=== PATIENT | female | born 1980 | race Two or more races ===

== ENCOUNTER 2024-10-08 22:29 | Inpatient (IN) | payer MEDICAID, SELFPAY ==
[2024-10-08 22:29] VITALS: BMI 28.0
--- NOTE | 2024-10-08 23:29 | EKG_ITS ---
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
[2024-10-08 23:31] VITALS: BP 84/54; PULSE 98; RESP 16; TEMP 36.7; O2SAT 98
[2024-10-09] VITALS (13 sets, daily range): BP systolic 81–126; BP diastolic 52–72; PULSE 74–95; RESP 14–18; TEMP 36.2–37.1; O2SAT 93–100; BMI 29.3
[2024-10-09 00:09] LABS: Basophils # (Auto) 0.1 Thou/mm3 (0.0-0.2); Basophils % (Auto) 0 % (0-2.5); Eosinophils % (Auto) 0 % (0-10); Hematocrit 34.1 % (36.0-46.0); Hemoglobin 10.1 g/dL (12.0-16.0); Immature Granulocytes % (Auto) 1 % (0-0); Immature Granulocytes Auto 0.22 Thou/mm3 (0.00-0.00); Lymphocytes # (Auto) 1.7 Thou/mm3 (1.0-4.8); Lymphocytes % (Auto) 6 % (10-50); Mean Corpuscular HGB Conc 29.6 g/dl (31.0-37.0); Mean Corpuscular Volume 74 fL (80-100); Monocytes # (Auto) 2.2 Thou/mm3 (0.0-0.8); Monocytes % (Auto) 9 % (0-12); Neutrophils # (Auto) 21.7 Thou/mm3 (1.8-7.7); Neutrophils % (Auto) 84 % (37-80); Nucleated Red Blood Cell % 0 /100 WBC (0); Platelet Count 377 Thou/mm3 (140-440); RDW Standard Deviation 49.2 fL (36.4-46.3); White Blood Count 25.8 Thou/mm3 (3.6-11.0)
[2024-10-09 00:43] LABS: Alanine Aminotransferase 17 U/L (10-49); Albumin, Serum 4.3 gm/dL (3.5-5.0); Albumin/Globulin Ratio 1.4 (1.2-2.2); Alkaline Phosphatase 154 U/L (46-116); Anion Gap 13 (7-16); Aspartate Amino Transferase 26 U/L (0-34); BUN/Creatinine Ratio 15 Ratio (12-20); Bilirubin,Total < 0.2 mg/dL (0.3-1.2); Blood Urea Nitrogen 40 mg/dL (9-23); Calcium 9.3 mg/dL (8.3-10.6); Calcium (Corrected) 9.3 mg/dL (8.5-10.1); Carbon Dioxide 18.6 mMol/L (20.0-31.0); Chloride 104 mMol/L (98-107); Creatinine (Component) 2.6 mg/dL (0.6-1.3); Estimated Creatinine Clearance 19.8 mL/min (>60); Glucose 112 mg/dL (74-106); Osmolality,Calculated 282 (275-295); Potassium 4.2 mMol/L (3.4-5.1); Sodium 136 mMol/L (136-145); Total Protein 7.3 gm/dL (5.7-8.2); Troponin I < 0.020 ng/mL (0.0-0.045); eGFR 22 See Note
[2024-10-09 00:53] LABS: Collection Type, Urine Clean Catch
--- NOTE | 2024-10-09 01:07 | PD.EDCHEST ---
ED Chest Pain RME/HPI General Chief Complaint: Chest Pain Stated Complaint: WEAK, CP HX ANEMIA Time Seen by Provider: 10/08/24 22:34 Arrival date/time: 10/08/24 22:29 RME / HPI RME / HPI narrative: DR. PELAYO MAIN ED EVALUATION: 43-year-old female presents with multiple complaints. Primarily the patient is complaining of chest pain, abdominal pain, generalized weakness and syncopal episode. Patient has a history of hypertension and takes multiple medications for that. Patient has a history of a bleeding peptic ulcer and was hospitalized and required transfusion a little over a year ago. 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 She states that she has been feeling progressively worsening generalized weakness over the past 2 weeks. Today while refereeing, she developed lightheadedness and and lost consciousness. Apparently she fell and did not injure herself at all in the fall. She then developed the chest pain and the generalized abdominal pain, more generalized weakness and profuse nonbloody, nonbilious diarrhea today. Patient denies recent cough, dysuria, urinary frequency, skin infections. No fevers, shakes, chills, sweats. Patient arrived hypotensive at 84/54. She denies diaphoresis, nausea, vomiting or dyspnea. Patient denies recent bloody emesis or bowel movements, and no black or red stools. Related Data Home Medications ?Medication ?Instructions ?Recorded ?Confirmed amlodipine 5 mg tablet 10 mg PO QPM 01/08/22 10/09/24 gabapentin 100 mg capsule 200 mg PO HS 01/08/22 10/09/24 hydrocodone 10 mg-acetaminophen 1 - 2 tab PO Q4H PRN Pain 01/08/22 10/09/24 325 mg tablet lisinopril 20 mg tablet 20 mg PO QDAY 01/08/22 10/09/24 ferrous sulfate 325 mg (65 mg 325 mg PO BID 02/11/23 10/09/24 iron) tablet (FeroSul) losartan 100 mg tablet (Cozaar) 100 mg PO .COMPLEX 10/09/24 10/09/24 Previous Rx's ?Medication ?Instructions ?Recorded pantoprazole 40 mg tablet,delayed 40 mg PO BID 3 months #180 tabs 07/06/23 release sucralfate 1 gram tablet 1 g PO BID 3 months #180 tabs 02/12/23 Allergies Allergy/AdvReac Type Severity Reaction Status Date / Time tramadol AdvReac Severe anxiety Verified 05/25/24 09:30 Review of Systems Review of Systems Systems Reviewed: All systems reviewed, normal except as documented Narrative Review of Systems: GEN: No fever, no chills, no weight loss EYES: No discharge, no visual changes, no pain HEENT: No ear pain, no congestion, no sore throat PULM: No shortness of breath, no cough, no congestion CV: + chest pain, no dyspnea on exertion, no palpitations GI: No nausea, no vomiting, + diarrhea, + abdominal pain, no constipation : No frequency, no urgency and no dysuria MUSC/SKEL: No joint pain, no back pain SKIN: No rash PSYCH: No hallucinations, no depression HEME/LYMPH: No easy bleeding or bruising tendencies NEURO: + generalized weakness, no headache, + syncopal episode (see HPI) Past Medical History Past Medical History NEUROLOGIC: Negative Neurological Disorders or Seizures CARDIAC: Positive Cardiac Disorders and Hypertension; Negative Congestive Heart Failure RESPIRATORY: Negative Respiratory Disorders, Chronic Obstructive Pulmonary Disease (COPD) or Asthma GASTROINTESTINAL: Negative Gastrointestinal Disorders GENITOURINARY: Negative Genitourinary Disorders or Renal Disease REPRODUCTIVE: Negative Pelvic Inflammatory Disease MUSCULOSKELETAL: Positive Musculoskeletal Disorders ENT: Negative History of ENT Problems ENDOCRINE: Negative Endocrine Disorders, Diabetes Mellitus Type 1 or Diabetes Mellitus Type 2 HEMATOLOGIC: Positive Blood Disorders and Anemia; Negative Sickle Cell Disease OTHER HISTORY: Positive Blood Transfusions; Negative Autoimmune Disease, Blood Transfusion Reaction, Anesthesia Reactions, Organ Transplant, Chemotherapy, Radiation Therapy, Hyperbaric Therapy, MRSA, VRSA or Vancomycin-Resistant Enterococci Family History FAMILY HISTORY: Negative Family Psychiatric Problems, Family Respiratory Disorders, Family Cardiac Disorders, Family Gastrointestinal Problems, Family Cancer, Family Surgery or Family Anesthesia Reaction Surgical History SURGICAL: Positive Abdominal Surgery and Section (x5); Negative Organ Transplant OTHER SURGICAL HX: Essential hypertension Chronic pain syndrome Social History SMOKING STATUS: Never smoker SECOND HAND EXPOSURE: No SUBSTANCE USE: does not use ALCOHOL: Never ED Exam Narrative Physical exam: GENERAL APPEARANCE:? alert and oriented x 4, well-developed, well-nourished, no acute distress. Pale. HEENT: Normocephalic, atraumatic; pupils equal, round, reactive to light; EOMI; mucous membranes pink, moist; oropharynx clear; Pale conjunctiva. NECK: Supple LUNGS: CTABL; no wheezes, no rales, no rhonchi HEART: Regular rate, regular rhythm; normal S1, S2; no murmurs ABDOMEN: non distended; normal BS;? soft, no tenderness, no guarding, no rebound; no masses, no organomegaly, no hernia?? BACK:? no CVA tenderness EXTREMITIES:? atraumatic; no edema NEUROLOGIC: awake; alert and oriented x4; cranial nerves II-XII grossly intact; no focal sensory or motor deficits PSYCHIATRIC:? appropriate mood and affect SKIN: warm, dry, normal color; no rashes Course Quality Measures none Orders Category Date Time Status Bedside COVID-19 Antigen Test NOW Care 10/09/24 05:36 Completed Bedside Influenza A&B Antigen Test NOW Care 10/09/24 05:[address] Screening NOW Care 10/09/24 01:29 Completed Irrigation Service Technician Q4H START 00 Care 10/09/24 01:03 Active Continuous Pulse Oximetry STAT Care 10/09/24 01:03 Completed EKG (ED ONLY) *Do not use* NOW Care 10/08/24 23:29 Completed In and Out Catheter X1PRN Care 10/09/24 01:03 Completed Insert IV NOW Care 10/09/24 01:03 Completed NPO STAT Care 10/09/24 01:03 Completed Orthostatic Vitals NOW Care 10/09/24 01:06 Completed Strict Intake and Output Routine Care 10/09/24 01:[address] abdomen pelvis wo con Stat Exams 10/09/24 03:15 Completed EKG (ED Only) Stat Exams 10/08/24 23:29 Draft XR chest 1V portable Stat Exams 10/09/24 01:06 Completed B-Type Natriuretic Peptide Stat Lab 10/09/24 01:20 Completed Blood Culture (Lab) Stat Lab 10/09/24 01:20 Results CBC Stat Lab 10/08/24 23:59 Completed CMP [Comprehensive Metabolic Panel] Stat Lab 10/08/24 23:59 Completed Clostridium Difficile PCR Stat Lab 10/09/24 02:01 Completed Free T4 (Free Thyroxine) Stat Lab 10/09/24 01:20 Completed HCG Qualitative,Urine Stat Lab 10/09/24 00:42 Completed LDH (Lactate Dehydrogenase) Stat Lab 10/09/24 01:20 Completed Lactate (Lactic Acid) Stat Lab 10/09/24 01:20 Completed Lipase Stat Lab 10/09/24 01:20 Completed Magnesium Stat Lab 10/09/24 01:20 Completed PT [Prothrombin Time with INR] Stat Lab 10/08/24 23:59 Completed PTT [Partial Thromboplastin Time] Stat Lab 10/08/24 23:59 Completed Path Review Blood Smear Stat Lab 10/08/24 23:59 Completed Phosphorous Stat Lab 10/09/24 01:20 Completed Procalcitonin Stat Lab 10/09/24 01:20 Completed Stool Culture Stat Lab 10/09/24 02:01 Received Stool for WBCs Stat Lab 10/09/24 02:01 Completed TSH [Thyroid Stimulating Hormone] Stat Lab 10/09/24 01:20 Completed Troponin I Stat Lab 10/08/24 23:59 Completed Type and Screen Stat Lab 10/08/24 23:59 Completed Urinalysis Stat Lab 10/09/24 00:47 Completed Urine Culture Stat Lab 10/09/24 00:42 Received HYDROmorphone INJ [Dilaudid Inj] Med 10/09/24 03:30 Discontinued 0.5 mg IVP PRN PRN Ondansetron Inj [Zofran Inj] Med 10/09/24 03:16 Discontinued 4 mg IV X1 ONE Piper/Tazo Inj [Zosyn Inj] 4.5 gm Med 10/09/24 05:39 Discontinued Sodium Chloride 0.9% (Pop) [NS 0.9% mini bag] 100 ml IV X1 Sodium Chloride 0.9% 1000 ml [Ns] 1,000 ml Med 10/09/24 01:05 Discontinued IV 999 mls/hr Sodium Chloride 0.9% 1000 ml [Ns] 1,000 ml Med 10/09/24 01:05 Discontinued IV 999 mls/hr cefTRIAXone [Rocephin] 1,000 mg Med 10/09/24 01:05 Discontinued SODIUM CHLORIDE 0.9% (Popper) [Ns 0.9% (P)] 50 ml IV X1 Vital Signs Vital signs: Vital Signs Temperature 98.1 F 10/08/24 23:31 Pulse Rate 98 10/08/24 23:31 Respiratory Rate 16 10/08/24 23:31 Blood Pressure 84/54 L 10/08/24 23:31 Pulse Oximetry (%) 98 10/08/24 23:31 Oxygen Delivery Method Room Air 10/08/24 23:31 Chest Pain MDM Narrative MDM Narrative:: I have ordered a cardiac and a sepsis workup. I have ordered greater than 30 cc/KG fluid bolus, Rocephin, orthostatics and the remainder of the workup. Patient data External records reviewed:: [facility] previous records (Reviewed last ED visit dated 05/25/24 discharged with the following: Chronic anemia) Clinical information provided by:: patient Social determinants that could affect healthcare access:: none Patient has the following chronic illnesses:: Hypertension and takes multiple medications for that. Patient has a history of a bleeding peptic ulcer and was hospitalized and required transfusion a little over a year ago. How is presenting disease/condition affected by chronic disease/condition?: exacerbated by Evaluation data The following diagnostics were reviewed and interpreted by me:: lab results, radiology exam(s) and EKG tracing(s) (EKG 23:35 normal sinus rhythm at 95. Normal axis no ectopy. No signs of acute ischemia.) Lab and/or radiology exams considered but not ordered:: none Interpretation Summary: 02:21 my read for the chest x-ray: Normal bony anatomy, sharp costophrenic angles, normal diaphragmatic edge, normal cardiac silhouette. No parenchymal infiltrates. No pneumothorax RADIOLOGY Procedure(s): XR chest 1V portable Accession Number(s): [id number] cc: Alicia Tena (ARIACHL); Frankie Darling MD; Ken Pelayo MD~ Examination: AP chest single view Technique one AP portable supine chest single view Exam date and time: October 09, 2024 at 0131 hrs. Comparison 04/27/2020 Indications: Sepsis today. Findings: Normal heart size. Lungs are clear. The osseous structures are intact Impression: No active disease Dictated By: Frankie Darling MD Procedure(s): CT abdomen pelvis wo [facility] Accession Number(s): [id number] cc: Darinel CAROLINA),Alicia SMITH; Frankie Darling MD; Ken Pelayo MD~ Examination: CT abdomen and pelvis without contrast. Coronal 3-D reconstructions. Sagittal 2-D reconstructions. Date and time of exam:October 10, 2024 0423 hrs. Indications: Generalized abdominal pain and acute renal failure anemia chest pain weakness abdominal pain today CTDI: vol (mGy): 6.96 DLP: (mGycm): 358 Technique: Axial images of the abdomen have been obtained, 3 mm slice thickness Intravenous contrast material has not been administered. Low dose protocols were performed. One or more of the following dose reduction techniques were used; automated exposure control, adjustment of the mA and/or KV according to patient size, use of iterative reconstruction technique. Findings: No focal liver or splenic lesions Absent gallbladder No pancreatic or adrenal mass 2 mm nonobstructing right renal calculus Colon is fluid filled with wall thickening Absent appendix Urinary bladder intact Incompletely healed fractures left superior inferior rami No free air Impression: 2 mm nonobstructing right renal calculus Diffuse nonspecific colitis pattern Dictated By: Frankie Darling MD Medications / Prescriptions Medications or Prescriptions considered but not ordered:: none Medication administrations:: Medication Administration History Acetaminophen (Acetaminophen 325 Mg Tablet) 650 mg PO Q6H PRN PRN Reason: Fever >100 or pain 1-5 Stop: 11/08/24 06:26 Hydrocodone Bitart/Acetaminophen (Hydrocodone/Apap 5/325 Tablet) 1 tab PO Q4HR PRN PRN Reason: Pain Scale 6-10 (Moderate Stop: 10/14/24 06:26 Last Admin: 10/10/24 21:58 Dose: 1 tab Documented By: Admin: 10/10/24 17:50 Dose: 1 tab Documented By: Admin: 10/10/24 11:47 Dose: 1 tab Documented By: CLIFF Hydromorphone HCl (Hydromorphone Inj 2 Mg/Ml Vial) 0.5 mg IVP Q4HR PRN PRN Reason: BREAKTHROUGH PAIN Stop: 10/15/24 08:29 Last Admin: 10/10/24 19:50 Dose: 0.5 mg Documented By: Admin: 10/10/24 14:05 Dose: 0.5 mg Documented By: CLIFF(2) Admin: 10/10/24 09:16 Dose: 0.5 mg Documented By: CLIFF Metronidazole (Flagyl 500 Mg Iv) 500 mg in 100 mls @ 200 mls/hr IV Q8HR FAHAD Stop: 10/16/24 08:59 Last Admin: 10/10/24 21:59 Dose: 200 mls/hr Documented By: Infusion: 10/10/24 14:36 Dose: Infused Documented By: Admin: 10/10/24 14:06 Dose: 200 mls/hr Documented By: CLIFF(2) Infusion: 10/10/24 05:30 Dose: Infused Documented By: CLIFF(2) Admin: 10/10/24 05:00 Dose: 200 mls/hr Documented By: Infusion: 10/09/24 21:57 Dose: Infused Documented By: Admin: 10/09/24 21:27 Dose: 200 mls/hr Documented By: Infusion: 10/09/24 15:30 Dose: Infused Documented By: Admin: 10/09/24 15:00 Dose: 200 mls/hr Documented By: Infusion: 10/09/24 10:15 Dose: Infused Documented By: Admin: 10/09/24 09:45 Dose: 200 mls/hr Documented By: GEOVANNI Ciprofloxacin/Dextrose (Cipro Ivpb) 400 mg in 200 mls @ 200 mls/hr IV Q12HR FAHAD Stop: 10/16/24 08:59 Last Admin: 10/10/24 20:18 Dose: 200 mls/hr Documented By: Infusion: 10/10/24 10:19 Dose: Infused Documented By: Admin: 10/10/24 09:19 Dose: 200 mls/hr Documented By: Infusion: 10/09/24 21:25 Dose: Infused Documented By: Admin: 10/09/24 20:22 Dose: 200 mls/hr Documented By: Infusion: 10/09/24 11:18 Dose: Infused Documented By: Admin: 10/09/24 10:18 Dose: 200 mls/hr Documented By: GEOVANNI Lactated Ringer's (Lactated Ringers) 1,000 mls @ 75 mls/hr IV .[id number] [facility] Stop: 11/09/24 10:53 Last Admin: 10/10/24 11:28 Dose: 75 mls/hr Documented By: CLIFF Ondansetron HCl (Ondansetron Inj 2 Mg/Ml Inj 2 Ml) 4 mg IV Q6H PRN; Protocol PRN Reason: NAUSEA OR VOMITING Stop: 11/08/24 06:26 Last Admin: 10/10/24 09:20 Dose: 4 mg Documented By: CLIFF Pantoprazole Sodium (Pantoprazole 40 Mg Tablet) 40 mg PO QDAY [facility] Stop: 11/08/24 08:59 Last Admin: 10/10/24 09:19 Dose: 40 mg Documented By: Admin: 10/09/24 09:39 Dose: 40 mg Documented By: NICOLE Sucralfate (Sucralfate 1 Gm Tablet) 1 gm PO BID [facility] Stop: 11/08/24 08:59 Last Admin: 10/10/24 20:18 Dose: 1 gm Documented By: Admin: 10/10/24 09:19 Dose: 1 gm Documented By: Admin: 10/09/24 20:22 Dose: 1 gm Documented By: Admin: 10/09/24 09:39 Dose: 1 gm Documented By: NICOLE Discontinued Medications Acetaminophen (Acetaminophen 325 Mg Tablet) 650 mg PO Q6H PRN PRN Reason: Fever >100 or pain 1-3 Stop: 11/08/24 06:26 Last Admin: 10/09/24 20:22 Dose: 650 mg Documented By: YADIRA Hydrocodone Bitart/Acetaminophen (Hydrocodone/Apap 5/325 Tablet) 1 tab PO Q4HR PRN PRN Reason: PAIN SCALE 4-6 (Moderate Stop: 10/14/24 06:26 Last Admin: 10/09/24 13:03 Dose: 1 tab Documented By: GEOVANNI Hydromorphone HCl (Hydromorphone Inj 2 Mg/Ml Vial) 0.5 mg IVP PRN PRN PRN Reason: PAIN Stop: 10/14/24 03:29 Last Admin: 10/09/24 08:22 Dose: 0.5 mg Documented By: Admin: 10/09/24 06:17 Dose: 0.5 mg Documented By: Admin: 10/09/24 03:28 Dose: 0.5 mg Documented By: EF Hydromorphone HCl (Hydromorphone Inj 2 Mg/Ml Vial) 0.5 mg IVP Q30MIN PRN PRN Reason: PAIN SCALE 7-10 (Severe Stop: 10/13/24 03:29 Hydromorphone HCl (Hydromorphone Inj 2 Mg/Ml Vial) 0.5 mg IVP Q2HR PRN PRN Reason: PAIN SCALE 7-10 (Severe Stop: 10/13/24 11:59 Last Admin: 10/10/24 05:07 Dose: 0.5 mg Documented By: Admin: 10/10/24 00:55 Dose: 0.5 mg Documented By: Admin: 10/09/24 21:27 Dose: 0.5 mg Documented By: Admin: 10/09/24 18:30 Dose: 0.5 mg Documented By: Admin: 10/09/24 15:07 Dose: 0.5 mg Documented By: TD Sodium Chloride (Ns) 1,000 mls @ 999 mls/hr IV .Q1H1M ONE Stop: 10/09/24 02:05 Last Infusion: 10/09/24 02:26 Dose: Infused Documented By: Admin: 10/09/24 01:28 Dose: 999 mls/hr Documented By: TC Ceftriaxone Sodium 1,000 mg/ (Sodium Chloride) 50 mls @ 100 mls/hr IV X1 ONE Stop: 10/09/24 01:34 Last Infusion: 10/09/24 02:06 Dose: Infused Documented By: Admin: 10/09/24 01:28 Dose: 100 mls/hr Documented By: TC Sodium Chloride (Ns) 1,000 mls @ 999 mls/hr IV .Q1H1M ONE Stop: 10/09/24 02:05 Last Infusion: 10/09/24 02:26 Dose: Infused Documented By: Admin: 10/09/24 01:28 Dose: 999 mls/hr Documented By: TC Piperacillin Sod/Tazobactam (Sod 4.5 gm/ Sodium Chloride) 100 mls @ 200 mls/hr IV X1 ONE Stop: 10/09/24 06:08 Last Infusion: 10/09/24 06:23 Dose: Infused Documented By: Admin: 10/09/24 05:52 Dose: 200 mls/hr Documented By: EF Sodium Chloride (Ns) 1,000 mls @ 75 mls/hr IV .[id number] FAHAD Stop: 11/08/24 06:29 Last Admin: 10/09/24 18:30 Dose: 75 mls/hr Documented By: Infusion: 10/09/24 18:30 Dose: Infused Documented By: Admin: 10/09/24 08:21 Dose: 75 mls/hr Documented By: ED Ondansetron HCl (Ondansetron Inj 2 Mg/Ml Inj 2 Ml) 4 mg IV X1 ONE; Protocol Stop: 10/09/24 03:17 Last Admin: 10/09/24 03:29 Dose: 4 mg Documented By: EF see above Consultations Consultation(s) initiated? (list below): Yes Consultation #1 (Physician, Specialty, Details): Discussed test HPI, PMHx, lab, radiology results and/or management with hospitalist. Will admit for further evaluation and management. Accepts patient for admission. Time: 06:00 Diagnosis Chest Pain Differential Diagnosis: atypical chest pain, st elevation myocardial infarction, costochondritis, chest pain and biliary colic Most likely diagnosis given after review of the tests above:: Sepsis Acute enterocolitis Syncope Admission Indicated Admission indicated?: indicated Admission Request Was there a request for admission?: Yes Admission Attestation Admission request attestation: Discussed case with [] from Hospitalist service regarding admission. Discussed patients ED course, exam findings, labs, and radiology results. The Hospitalist [agrees,declines] to accept the patient for admission. Disposition Plan Disposition Plan: Admit Discharge Plan Plan Patient Disposition: Admit Acute Care w/in Hospital Problem List Clinical Impression: Sepsis, Syncope
[2024-10-09] MEDS: cefTRIAXone 1,000 MG in SODIUM CHLORIDE 0.9% (Popper) 50 ML 100 MG IV (01:28)
[2024-10-09] MEDS: SODIUM CHLORIDE 0.9% 1000 ML 1,000 ML 999 ML IV ×2 (01:28)
[2024-10-09 01:34] LABS: INR 1.2 (0.9-1.3); Partial Thromboplastin Time 52.1 Seconds (22.0-36.0); Prothrombin Time 12.5 Seconds (9.0-12.2)
[2024-10-09 01:39] LABS: Lactate (Lactic Acid) 1.6 mMol/L (0.4-2.0)
[2024-10-09 01:49] LABS: Bacteria,Urine 4+; Bilirubin,Urine Negative (Negative); Blood,Urine Trace (Negative); Clarity,Urine Turbid (Clear/Hazy); Color,Urine Yellow (Lt Yel-Yel); Glucose, Urine Negative (Negative); Ketones,Urine Negative (Negative); Leukocyte Esterase,Urine Positive (Negative); Nitrite,Urine Negative (Negative); Protein,Urine 1+ (Neg - Trace); RBC,Urine 7 /hpf (0-3); Specific Gravity,Urine 1.031 (1.001-1.035); Squamous Epithelial Cell,Urine 2 /hpf (0-5); Urobilinogen,Urine Negative mg/dL (0.0-1.0); WBC,Urine 19 /hpf (0-5)
[2024-10-09 03:15] LABS: B-Type Natriuretic Peptide 30 pg/mL (0-100)
--- NOTE | 2024-10-09 03:15 | XR_ITS ---
Examination: CT abdomen and pelvis without contrast. Coronal 3-D reconstructions. Sagittal 2-D reconstructions. Date and time of exam:October 10, 2024 0423 hrs. Indications: Generalized abdominal pain and acute renal failure anemia chest pain weakness abdominal pain today CTDI: vol (mGy): 6.96 DLP: (mGycm): 358 Technique: Axial images of the abdomen have been obtained, 3 mm slice thickness Intravenous contrast material has not been administered. Low dose protocols were performed. One or more of the following dose reduction techniques were used; automated exposure control, adjustment of the mA and/or KV according to patient size, use of iterative reconstruction technique. Findings: No focal liver or splenic lesions Absent gallbladder No pancreatic or adrenal mass 2 mm nonobstructing right renal calculus Colon is fluid filled with wall thickening Absent appendix Urinary bladder intact Incompletely healed fractures left superior inferior rami No free air Impression: 2 mm nonobstructing right renal calculus Diffuse nonspecific colitis pattern
[2024-10-09 03:21] LABS: Free T4 (Free Thyroxine) 1.24 ng/dL (0.89-1.76); Lipase 38 U/L (12-53); Phosphorous 4.4 mg/dL (2.4-5.1); Thyroid Stimulating Hormone 0.72 uIU/mL (0.55-4.78)
[2024-10-09 03:22] LABS: Stool for WBCs Moderate (Negative)
[2024-10-09] MEDS: HYDROmorphone INJ 2 MG/ML VIAL 0.5 MG IVP ×6 (03:28→21:27)
[2024-10-09] MEDS: ONDANSETRON INJ 2 MG/ML INJ 2 ML 4 MG IV (03:29)
[2024-10-09 03:42] LABS: HCG Qualitative,Urine Negative
[2024-10-09 03:47] LABS: Procalcitonin 83.61 ng/ml (0.0-0.49)
--- NOTE | 2024-10-09 05:31 | PRELIM_ITS ---
CT scan of the abdomen and pelvis without intravenous contrast (axial sections with sagittal and coronal reformats). October 09, 2024 at 0423 hours Clinical History: Abdominal pain. Comparison: No prior study is available for comparison. Findings: Gallbladder is surgically absent. The unenhanced liver, spleen, pancreas, adrenals and left kidney unremarkable. Tiny nonobstructive nephroliths noted within the right kidney. There is no hydroureteronephrosis. The urinary bladder only contains a small amount of fluid and is not adequately distended. Surgical clips are noted within the pelvis which may be related to prior tubal ligation. Reproductive organs are otherwise unremarkable. There is underdistention of the stomach which limits evaluation. Scattered small and large bowel fluid noted which may indicate diarrheal state and possible acute enterocolitis. There is no bowel obstruction. There is a calcified tablet like density in the region of the cecum medially. There may have been prior appendectomy. There is no free intraperitoneal air or fluid. There is no abdominal or pelvic lymphadenopathy. There is subsegmental atelectasis within the lung bases. Subacute left superior and inferior pubic rami fractures are noted. There is degenerative change in the spine. There is grade 1 degenerative anterolisthesis of L4 on L5. Impression: Acute enterocolitis. No bowel obstruction. Subacute left superior and inferior pubic rami fractures. Report Electronically Signed By: Jaxon Moreno 10/09/2024 5:29:41 AM [EST]
[2024-10-09] MEDS: PIPER/TAZO INJ 4.5 GM in SODIUM CHLORIDE 0.9% (POP) 100 ML IV (05:52)
--- NOTE | 2024-10-09 06:12 | ESHP_ITS ---
<Statement entered by Trey Mirza MD - 10/09/24 20:50> I discussed with and supervised the commander internal affairs physician involved in the care of this patient. Patient assessment and plan was discussed with entire medicine team, including my attending. I agree with the assessment and plan as documented by commander internal affairs doctor. Patient care was discussed with my attending physician Dr. Nic Mirza, PGY-2 Documentation for date of: 10/09/24 HPI History of Present Illness History of present illness: Stacie is a 43 y/o female with PMHx of hypertension, GI bleed, peptic ulcer disease and chronic back pain who comes in for an evaluation of vomiting, diarrhea and syncope. Patient reports that her episodes of vomiting and diarrhea started around 1 PM yesterday in which she had several episodes. She also says that she had some episodes of dark stools as well. She did says she had an episode of syncope which she felt like it came on suddenly in with no prodromal symptoms. She says she was hospitalized in the past for having peptic ulcers. She says she is also have history of chronic anemia and syncope. She denies any sick contacts, or changes to her diet. She denies being on any blood thinner. She takes ferrous sulfate twice a day for her anemia. She also notes that she takes 3 blood pressure medicines including losartan and lisinopril. She says that she has some sort of chest pressure on her right side that comes and goes but feels like it is anxiety. She denies having any shortness of breath, confusion, numbness, tingling, headache. She does endorse having some dysuria, says that she gets UTIs frequently and the last one was 3 months ago. She has no other complaints this time ED course: She arrived to the ED to the ED with a blood pressure of 81/58, afebrile, temperature of 98.7, heart rate 91, saturating 100% on room air. She was worked up and was found to have a sodium 136, potassium 4.2, BUN/creatinine of 40 and 2.6 respectively, glucose of 112, PTT of 52, PT of 12.5, white count 26, hemoglobin of 10.1, platelets of 377. Urine showed +4 bacteria and 19 with cells. Stool showed moderate white cells. CT abdomen pelvis shows acute enterocolitis pattern. EKG showed normal sinus rhythm, possible early repolarization and short MI interval. Sepsis alert was initiated in the ED and patient received 2 L normal saline, Rocephin x 1, Zosyn x 1, Zofran x 1, Dilaudid 1 mg. Medicine was consulted and patient admitted to floors. Past medical history: As above Surgical history: Cholecystectomy, appendectomy, tubal ligation, Allergies: Tramadol gives her anxiety Medicines: [place], gabapentin, lisinopril, Protonix, Carafate, ferrous sulfate, amlodipine, losartan Family history: History of diabetes, okay to stroke, no history of heart attacks Social history: Lives into [place] with her and kids. She denies any recent travel. Denies any smoking history, has never been a heavy drinker, and denies history of oral or IV drug use. Has not changed her diet recently. Review of Systems Review of Systems Narrative Review of Systems: Constitutional: No fever, chills, fatigue, weakness, weight loss HEENT: No eye pain, vision loss, ear pain, hearing loss, dysphagia, Cardiovascular: No chest pain, palpitations, edema, pain with walking Respiratory: No cough, shortness of breath, wheezing GI: +Vomiting, + abdominal pain,+ blood in stool Extremities: No presence of pitting edema MSK: No back pain, joint pain, joint swelling Neuro: No dizziness, numbness, weakness, headaches, seizures, tremors Psych: No anxiety, depression Exam Vital Signs Temp Pulse Resp BP Pulse Ox O2 Del Method 98.1 F 79 18 105/70 100 Room Air 10/09/24 05:38 10/09/24 06:03 10/09/24 06:03 10/09/24 06:03 10/09/24 06:03 10/09/24 06:03 Narrative Exam General: AAOx3, NAD, tuvaluan and [place]ian speaking woman, appears to be short HEENT: Dry mucous membranes, conjunctiva clear, EOMI, PERRLA, Cardiovascular: S1, S2, radial pulses +2 bilat, RRR Pulmonary: CTAB bilat no cough, no wheezing GI: Abdominal pain to right and left lower quadrant, bowel sounds present, no guarding, rigidity, rebound tenderness or distension Extremities: No presence of trace or pitting edema in lower extremities bilaterally, dorsalis pedis pulses +2 bilaterally Neuro: AAOx3, no focal motor or sensory deficits in the UE or LE bilat Psych: Good judgement, thought and behavior. Cooperative Results: Labs 10/09/24 11:53 10/09/24 11:53 Labs: Short CBC 10/08/24 Range/Units 23:59 WBC 25.8 H (3.6-11.0) Thou/mm3 Hgb 10.1 L (12.0-16.0) g/dL Hct 34.1 L (36.0-46.0) % Plt Count 377 (140-440) Thou/mm3 BMP 10/08/24 23:59 Sodium 136 Potassium 4.2 Chloride 104 Carbon Dioxide 18.6 L BUN 40 H Creatinine 2.6 H Glucose 112 H Calcium 9.3 Cardiac Enzymes 10/08/24 Range/Units 23:59 Troponin I < 0.020 (0.0-0.045) ng/mL Liver Function 10/08/24 Range/Units 23:59 Total Bilirubin < 0.2 L (0.3-1.2) mg/dL AST 26 (0-34) U/L ALT 17 (10-49) U/L Alkaline Phosphatase 154 H (46-116) U/L Albumin 4.3 (3.5-5.0) gm/dL Urine 10/09/24 Range/Units 00:47 Urine Color Yellow (Lt Yel-Yel) Urine Clarity Turbid A (Clear/Hazy) Urine pH 5.0 (5.0-7.0) Ur Specific [place] 1.031 (1.001-1.035) Urine Protein 1+ A (Neg - Trace) Urine Glucose (UA) Negative (Negative) Quality Measures Quality Measures VTE prophylaxis (scds) Medications Home Medications and Allergies Home Medications ?Medication ?Instructions ?Recorded ?Confirmed ?Type amlodipine 5 mg tablet 10 mg PO QPM 01/08/22 History gabapentin 100 mg capsule 200 mg PO HS 01/08/22 History hydrocodone 10 mg-acetaminophen 1 - 2 tab PO Q4H PRN P ain 01/08/22 10/09/24 History 325 mg tablet lisinopril 20 mg tablet 20 mg PO QDAY 01/08/2210/09 History ferrous sulfate 325 mg (65 mg 325 mg PO BID 02/11/23 0 10/09/24 History iron) tablet (FeroSul) losartan 100 mg tablet (Cozaar) 100 mg PO .COMPLEX 10/0410/09/24 History Allergies Allergy/AdvReac Type Severity Reaction Status Date / Time tramadol AdvReac Severe anxiety Verified 05/25/24 09:30 Visit Medications Hydromorphone HCl (Hydromorphone Inj 2 Mg/Ml Vial) 0.5 mg IVP PRN PRN PRN Reason: PAIN Stop: 10/14/24 03:29 Last Admin: 10/09/24 03:28 Dose: 0.5 mg Discontinued Medications Sodium Chloride (Ns) 1,000 mls @ 999 mls/hr IV .Q1H1M ONE Stop: 10/09/24 02:05 Last Infusion: 10/09/24 02:26 Dose: Infused Ceftriaxone Sodium 1,000 mg/ (Sodium Chloride) 50 mls @ 100 mls/hr IV X1 ONE Stop: 10/09/24 01:34 Last Infusion: 10/09/24 02:06 Dose: Infused Sodium Chloride (Ns) 1,000 mls @ 999 mls/hr IV .Q1H1M ONE Stop: 10/09/24 02:05 Last Infusion: 10/09/24 02:26 Dose: Infused Piperacillin Sod/Tazobactam (Sod 4.5 gm/ Sodium Chloride) 100 mls @ 200 mls/hr IV X1 ONE Stop: 10/09/24 06:08 Last Admin: 10/09/24 05:52 Dose: 200 mls/hr Ondansetron HCl (Ondansetron Inj 2 Mg/Ml Inj 2 Ml) 4 mg IV X1 ONE; Protocol Stop: 10/09/24 03:17 Last Admin: 10/09/24 03:29 Dose: 4 mg Assessment & Plan Plan Assessment Stacie is a 43 y/o female with PMHx of hypertension, GI bleed, peptic ulcer disease and chronic back pain who is currently admitted for sepsis secondary to enterocolitis, GI losses and syncope workup. #Sepsis secondary to #Acute enterocolitis Patient came in with white count of 24, and appears to be tachycardic at some point feeling 2 of [address] abdomen pelvis shows imaging signs of acute enterocolitis Patient experiencing abdominal pain as well We will treat for abdominal infection and continue sepsis workup qSOFA: 1 point Lactate 1.6 Hypotension likely related to GI losses Plan: ? Maintenance fluids 75 cc an hour of NS ? Cipro 500 mg every 12 IV and Flagyl 500 mg every 8 hours IV hours #Syncope secondary to #GI losses This is likely related to GI losses, hypovolemia or orthostatic hypotension Will treat as above Plan: ? Orthostatics ? Activity as tolerated ? Neurochecks every 4 hours ? Will consider neurology consult #Acute kidney injury #Metabolic acidosis, secondary to GI losses Likely prerenal Related to hypovolemia and GI losses (Nausea and diarrhea) Creatinine 2.6, BUN 40 HCO3-: 18 Plan: ? Maintenance NS 75 cc/hour #? GI bleed #Hx of Peptic ulcer disease Patient reports having dark stools Patient also does take iron twice a day, but make stools dark, however patient does have history of GI bleed Plan: ? FOBT ? Continue with Protonix 40 mg IV ? Continue with Carafate 1 g every 12 hours #Microcytic chronic anemia #Symptomatic anemia MCV below 80 Patient does take iron twice a day Plan: ? Iron studies ? Peripheral blood smear ? Avoid NSAIDs, use SCDs for DVT prophylaxis #Hx of HTN Plan: ? Holding blood pressure medicines in setting of hypotension ? Awaiting med rec #Hx of chronic back pain ? Resume home [place] #Health Maintenance Disposition: [facility]tele DVT prophylaxis: SCDs GI prophylaxis: Protonix Diet: Cardiac CODE STATUS: Full Patient seen and care discussed with my senior resident, Dr. Mirza, and my attending physician, Dr. Nic Padilla, PGY-1 Attending Provider Attestation/Addendum I attest that I was physically present for the evaluation, physical examination, lab and imaging review of the patient with the residents. I discussed the case with the residents and agree with the findings and plans of care as documented above. Patient is a 43 years old female with past medical history of hypertension, GI bleeding, peptic ulcer disease and chronic back pain who presented to the ED with complaint of vomiting, diarrhea and syncopal episode. Patient has been having multiple episodes of vomiting and diarrhea since yesterday afternoon. She admits to having black tarry stool but states that she has been on iron tablets. In the ED, she was found to have blood pressure of 81/58, BUN/creatinine 40/2.6, hemoglobin 10.1. Urinalysis shows 4+ bacteria and 19 WBCs. Stool studies showed moderate white cells. CT abdomen/pelvis was done which shows acute enterocolitis pattern. Sepsis alert was initiated in the ED, patient received IV fluid bolus, antibiotics and cultures were obtained. We will admit the patient for management of sepsis secondary to acute enterocolitis, start her on IV Flagyl and ciprofloxacin. We will also continue with maintenance IV hydration and IV antiemetic. We will obtain orthostatic vitals, correct her dehydration. We will obtain FOBT to rule out GI bleed, start her on IV Protonix, if FOBT is positive we will plan for GI consult. We will obtain iron studies given patient's history of microcytic anemia. Ibeth Lucero MD
[2024-10-09 06:29] LABS: LDH (Lactate Dehydrogenase) 256 U/L (120-246)
[2024-10-09 07:16] LABS: Total Iron Binding Capacity 410 mcg/dL (250-425)
[2024-10-09 07:19] LABS: Path Review Blood Smear Sent to Pathologist
[2024-10-09 07:25] LABS: Iron 38 mcg/dL (50-170); Percent Iron Saturation 9 % (20-55); Unsaturated Iron Binding 372 (225-295)
--- NOTE | 2024-10-09 08:04 | PC.NURSE ---
Pt. here from home to room 1, pt. states she has abdominal pain X 4 days, pt. states the vomiting and the diarrhea started yesterday. The pt. states it was a lot of diarrhea. Pt. sitting up in bed eating breakfast and drinking coffee, pt. states her pain is 10/10, pt. points to the middle of her abdomen for the location of pain. 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 No s/s of distress. Pt. states she understands she's being admitted.
[2024-10-09] MEDS: SODIUM CHLORIDE 0.9% 1000 ML 1,000 ML 75 ML IV ×2 (08:21→18:30)
[2024-10-09 09:24] LABS: Clostridium Difficile PCR Negative (Negative)
[2024-10-09] MEDS: SUCRALFATE 1 GM TABLET PO ×2 (09:39→20:22)
[2024-10-09] MEDS: PANTOPRAZOLE 40 MG TABLET PO (09:39)
[2024-10-09] MEDS: metroNIDAZOLE/NS 500 MG IVPB 500 MG/100 ML BAG 200 MG IV ×3 (09:45→21:27)
[2024-10-09] MEDS: CIPROFLOXACIN/D5w 400 MG IVPB 400 MG/200 ML BAG 200 MG IV ×2 (10:18→20:22)
[2024-10-09 12:24] LABS: Basophils % (Auto) 0 % (0-2.5); Eosinophils % (Auto) 0 % (0-10); Hematocrit 24.5 % (36.0-46.0); Immature Granulocytes % (Auto) 1 % (0-0); Immature Granulocytes Auto 0.11 Thou/mm3 (0.00-0.00); Lymphocytes # (Auto) 1.6 Thou/mm3 (1.0-4.8); Lymphocytes % (Auto) 10 % (10-50); Mean Corpuscular HGB Conc 29.4 g/dl (31.0-37.0); Mean Corpuscular Hemoglobin 22.4 pg (25.0-35.0); Mean Corpuscular Volume 76 fL (80-100); Monocytes # (Auto) 1.5 Thou/mm3 (0.0-0.8); Monocytes % (Auto) 9 % (0-12); Neutrophils # (Auto) 12.5 Thou/mm3 (1.8-7.7); Neutrophils % (Auto) 79 % (37-80); Nucleated Red Blood Cell % 0 /100 WBC (0); Platelet Count 262 Thou/mm3 (140-440); Red Blood Count 3.21 Miln/mm3 (4.00-5.20); White Blood Count 15.7 Thou/mm3 (3.6-11.0)
--- NOTE | 2024-10-09 12:33 | PCS.ST ---
Swallow eval completed. pt presented with Functional swallowing mechanism. Initiate D3 diet, per pt preference. See report for additional details
[2024-10-09 12:51] LABS: Glucose Estimated Average 111 mg/dL (80-131); Hemoglobin A1C 5.5 % Hgb (4.8-6.0)
[2024-10-09 12:53] LABS: Alanine Aminotransferase 12 U/L (10-49); Albumin, Serum 3.3 gm/dL (3.5-5.0); Albumin/Globulin Ratio 1.5 (1.2-2.2); Alkaline Phosphatase 89 U/L (46-116); Anion Gap 10 (7-16); Aspartate Amino Transferase 14 U/L (0-34); BUN/Creatinine Ratio 26 Ratio (12-20); Bilirubin,Total 0.2 mg/dL (0.3-1.2); Blood Urea Nitrogen 29 mg/dL (9-23); Calcium 7.9 mg/dL (8.3-10.6); Calcium (Corrected) 8.5 mg/dL (8.5-10.1); Carbon Dioxide 19.5 mMol/L (20.0-31.0); Chloride 112 mMol/L (98-107); Creatinine (Component) 1.1 mg/dL (0.6-1.3); Estimated Creatinine Clearance 47.8 mL/min (>60); Globulin 2.2 gm/dL (2.3-3.5); Glucose 101 mg/dL (74-106); Osmolality,Calculated 287 (275-295); Potassium 3.8 mMol/L (3.4-5.1); Sodium 141 mMol/L (136-145); Total Protein 5.5 gm/dL (5.7-8.2); eGFR > 60 See Note
[2024-10-09] MEDS: HYDROcodone/APAP 5/325 TABLET 1 TAB PO (13:03)
[2024-10-09 13:35] LABS: Hemoglobin 7.2 g/dL (12.0-16.0)
--- NOTE | 2024-10-09 15:52 | PC.SS ---
Stacie Grande is 43-year-old female admitted to Med-Surg for Colitis and Syncope. SS conducted bedside contact with the patient to complete initial assessment and to discuss discharge planning.? Patient confirmed demographic information. Patient identifies her son Rigo Ledesma [phone] as her surrogate decision maker. Patient resides at home with her family. Pt states she is able to complete all ADL?s independently, no need for any source of DME. Pts PCP is Dr. Alicia Tena and her pharmacy of choice is [facility] [address]. DC options discussed and pt wihes to return home at the tie of DC. Pts fam will provide transportation upon DC. No further intervention required at this time, director social welfare would be available to address any further concerns. DC Plan: Home Contact: Rigo Ledesma [phone] PCP: luann Tena
--- NOTE | 2024-10-09 17:17 | ESPR_ITS ---
<Statement entered by Octavia Gardner MD - 10/15/24 21:49> I reviewed above note and agree with findings and plans. I have also personally examined the patient with medicine team and went over assessment and plan with medical team including sports broadcasting internship and resident physician. Documentation for date of: 10/09/24 Subjective Subjective Interval history: Patient is an overnight admit. Patient seen and examined at bedside this morning. Patient states she was at the park with her kids and started feeling dizzy and lightheaded and when she used the restroom she was having profuse diarrhea. Patient denies any sick contacts recent travels or eating anything out of the ordinary. Patient did say she previously had an episode of diarrhea with mucus blood and underwent colonoscopy and was not diagnosed with any IBD. She does have history of peptic ulcer disease and previous admission for GI bleed. Patient states she is mildly dizzy this morning continues diffuse abdominal pain and 5 episodes of diarrhea , all dark stool but states that her stools are always dark because she takes iron pills. Blood pressure stable at 107/65, leukocytosis is downtrending to 15.7. Hemoglobin is 7.2 and hematocrit 24.5 which has significantly dropped from yesterday. Patient denies any notable blood in her stool and her vomiting has resolved. C. difficile is negative. Exam Vital Signs Temp Pulse Resp BP Pulse Ox O2 Del Method 97.2 F 80 17 92/56 L 93 L Room Air 10/09/24 12:00 10/09/24 12:00 10/09/24 12:00 10/09/24 12:00 10/09/24 12:00 10/09/24 12:00 Narrative Exam GENERAL: A&Ox3 . Awake, Not in acute distress NEURO: no focal neurological deficits HEENT: Atraumatic, Normocephalic. mucous membranes moist. Eyes open, symmetrical, & clear HEART: Normal Heart Sounds LUNGS: Clear to auscultation with no wheezing or crackles. ABDOMEN: soft, non-distended, tenderness to palpation SKIN: No Rash or ecchymoses EXTREMITIES: No edema, tenderness, able to move all 4 extremities, pedal pulses palpated Objective Labs 10/09/24 11:53 10/09/24 11:53 Labs: Laboratory Results - last 24 hr 03/01/25 03/02/25 03/02/25 23:59 00:42 00:47 WBC 25.8 H RBC 4.60 Hgb 10.1 L Hct 34.1 L MCV 74 L MCH 22.0 L MCHC 29.6 L RDW Std Deviation 49.2 H Plt Count 377 Neut % (Auto) 84 H Lymph % (Auto) 6 L Lyman % (Auto) 9 Eos % (Auto) 0 Baso % (Auto) 0 Neut # (Auto) 21.7 H Lymph # (Auto) 1.7 Lyman # (Auto) 2.2 H Eos # (Auto) 0.0 Baso # (Auto) 0.1 Immature Gran # (Auto) 0.22 H Absolute Nucleated RBC 0.00 Immature Gran % 1 H Nucleated RBC % 0 Smear Path Review Sent to Pathologist PT 12.5 H INR 1.2 APTT 52.1 H Sodium 136 Potassium 4.2 Chloride 104 Carbon Dioxide 18.6 L Anion Gap 13 BUN 40 H Creatinine 2.6 H Estim Creat Clear Calc 19.8 L eGFR 22 L BUN/Creatinine Ratio [address] Glu mg/dL Hemoglobin A1c Calculated Osmolality 282 Lactic Acid Calcium 9.3 Corrected Calcium 9.3 Phosphorus Magnesium Iron TIBC Iron Saturation Unsat Iron Binding Total Bilirubin < 0.2 L AST 26 ALT 17 Alkaline Phosphatase 154 H Lactate Dehydrogenase Troponin I < 0.020 B-Natriuretic Peptide Total Protein 7.3 Albumin 4.3 Globulin 3.0 Albumin/Globulin Ratio 1.4 Lipase Procalcitonin TSH Free T4 Ur Collection Type Clean Catch Urine Color Yellow Urine Clarity Turbid A Urine pH 5.0 Ur Specific [place] 1.031 Urine Protein 1+ A Urine Glucose (UA) Negative Urine Ketones Negative Urine Blood Trace Urine Nitrite Negative Urine Bilirubin Negative Urine Urobilinogen (Auto) Negative Ur Leukocyte Esterase Positive Urine RBC 7 H Urine WBC 19 H Ur Squamous Epith Cells 2 Urine Bacteria 4+ A Urine HCG, Qual Negative Stool for White Cells Stl C. diff Tox B Gene Blood Type O Positive Antibody Screen NEGATIVE Blood Bank Wristband ID Yes 10/09/24 10/09/24 10/09/24 01:20 02:01 11:53 WBC 15.7 H D RBC 3.21 L Hgb 7.2 L D Hct 24.5 L MCV 76 L MCH 22.4 L MCHC 29.4 L RDW Std Deviation 52.0 H Plt Count 262 D Neut % (Auto) 79 Lymph % (Auto) 10 Lyman % (Auto) 9 Eos % (Auto) 0 Baso % (Auto) 0 Neut # (Auto) 12.5 H Lymph # (Auto) 1.6 Lyman # (Auto) 1.5 H Eos # (Auto) 0.0 Baso # (Auto) 0.0 Immature Gran # (Auto) 0.11 H Absolute Nucleated RBC 0.00 Immature Gran % 1 H Nucleated RBC % 0 Smear Path Review PT INR APTT Sodium 141 Potassium 3.8 Chloride 112 H Carbon Dioxide 19.5 L Anion Gap 10 BUN 29 H Creatinine 1.1 D Estim Creat Clear Calc 47.8 L eGFR > 60 BUN/Creatinine Ratio 26 H Glucose [address] Glu mg/dL 111 Hemoglobin A1c 5.5 Calculated Osmolality 287 Lactic Acid 1.6 Calcium 7.9 L Corrected Calcium 8.5 Phosphorus 4.4 Magnesium 2.0 Iron 38 L TIBC 410 Iron Saturation 9 L Unsat Iron Binding 372 H Total Bilirubin 0.2 L AST 14 ALT 12 Alkaline Phosphatase 89 D Lactate Dehydrogenase 256 H Troponin I B-Natriuretic Peptide 30 Total Protein 5.5 L Albumin 3.3 L D Globulin 2.2 L Albumin/Globulin Ratio 1.5 Lipase 38 Procalcitonin 83.61 H TSH 0.72 Free T4 1.24 Ur Collection Type Urine Color Urine Clarity Urine pH Ur Specific [place] Urine Protein Urine Glucose (UA) Urine Ketones Urine Blood Urine Nitrite Urine Bilirubin Urine Urobilinogen (Auto) Ur Leukocyte Esterase Urine RBC Urine WBC Ur Squamous Epith Cells Urine Bacteria Urine HCG, Qual Stool for White Cells Moderate A Stl C. diff Tox B Gene Negative Blood Type Antibody Screen Blood Bank Wristband ID Quality Measures Quality Measures VTE prophylaxis (scds) Assessment & Plan Assessment Current Active Medications: Generic Name Dose Route Start Last Admin Trade Name Freq PRN Reason Stop Dose Admin Acetaminophen 650 mg 10/09/24 06:27 Acetaminophen 325 Mg Tablet PO 11/08/24 06:26 Q6H PRN Fever >100 or pain 1-3 Hydrocodone Bitart/Acetaminophen 1 tab 10/09/24 06:27 10/09/24 13:03 Hydrocodone/Apap 5/325 Tablet PO 10/14/24 06:26 1 tab Q4HR PRN Administration PAIN SCALE 4-6 (Moderate Hydromorphone HCl 0.5 mg 10/09/24 12:00 10/09/24 15:07 Hydromorphone Inj 2 Mg/Ml Vial IVP 10/13/24 11:59 0.5 mg Q2HR PRN Administration PAIN SCALE 7-10 (Severe Sodium Chloride 1,000 mls @ 75 mls/hr 10/09/24 06:30 10/09/24 08:21 Ns IV 11/08/24 06:29 75 mls/hr .[id number] FAHAD Administration Metronidazole 500 mg in 100 mls @ 200 mls/hr 10/09/24 09:00 10/09/24 15:00 Flagyl 500 Mg Iv IV 10/16/24 08:59 200 mls/hr Q8HR FAHAD Administration Ciprofloxacin/Dextrose 400 mg in 200 mls @ 200 mls/hr 10/09/24 09:00 10/09/24 10:18 Cipro Ivpb IV 10/16/24 08:59 200 mls/hr Q12HR FAHAD Administration Ondansetron HCl 4 mg 10/09/24 06:27 Ondansetron Inj 2 Mg/Ml Inj 2 Ml IV 11/08/24 06:26 Q6H PRN NAUSEA OR VOMITING Protocol Pantoprazole Sodium 40 mg 10/09/24 09:00 10/09/24 09:39 Pantoprazole 40 Mg Tablet PO 11/08/24 08:59 40 mg QDAY FAHAD Administration Sucralfate 1 gm 10/09/24 09:00 10/09/24 09:39 Sucralfate 1 Gm Tablet PO 11/08/24 08:59 1 gm BID FAHAD Administration Plan Ms. Mendoza is a 43 y/o female with PMHx of hypertension, peptic ulcer disease, Hx of GI bleed, chronic anemia and chronic back pain who is currently admitted for sepsis secondary to enterocolitis, GI losses and syncope workup. #Sepsis secondary to #Acute enterocolitis -Pt presented with vomiting, diarrhea, diffuse abdominal pain and fever -SIRS 3/4 met: tachycardia, leukocytosis (WBC 24) and fever -CT abdomen pelvis shows imaging signs of acute-colitis -Lactate 1.6, procalcitonin 83.1 -Hypotension likely related to GI losses Plan: -Maintenance fluids 75 cc an hour of NS -Pain meds ordered prn -Zofran prn -Cipro 500 mg every 12 IV and Flagyl 500 mg every 8 hours IV hours #Syncope #Hypotension secondary to #GI losses -This is likely related to GI losses, hypovolemia or orthostatic hypotension Plan: -Activity as tolerated -Full liquid diet, advance as tolerated #Acute kidney injury- imrpoving #Metabolic acidosis, secondary to GI losses Likely prerenal Related to hypovolemia and GI losses (Nausea and diarrhea) on admission Creatinine 2.6, BUN 40 HCO3-: 19.5 Plan: -Maintenance NS 75 cc/hour #Hx of Peptic ulcer disease #Iron deficiency Anemia -Pt has history of PUD and anemia, and takes ferrous sulfate daily which could be contributing to black stool. Plan: -FOBT -Continue with Protonix 40 mg IV -Continue with Carafate 1g every 12 hours #Microcytic chronic anemia #Symptomatic anemia -hemoglobin 7.2, hematocrit 24.5, MCV 76, MCH 22.4 -Iron panel: Iron 38, TIBC 410, iron saturation 9%, unsaturated iron binding 372 -Patient takes ferrous sulfate at home Plan: -Peripheral blood smear -Avoid NSAIDs, use SCDs for DVT prophylaxis -Will transfused Hgb <7 #Hx of HTN -Holding blood pressure medicines in setting of hypotension #Hx of chronic back pain ? Resume home [place] #Health Maintenance Disposition: [facility] DVT prophylaxis: SCDs GI prophylaxis: Protonix Diet: Cardiac CODE STATUS: Full Assessment and plan discussed with my senior resident Dr. Hill & attending physician Dr. Jj Barajas (PGY-1)- Internal medicine resident
[2024-10-09] MEDS: ACETAMINOPHEN 325 MG TABLET 650 MG PO (20:22)
[2024-10-10] VITALS (8 sets, daily range): BP systolic 98–115; BP diastolic 54–67; PULSE 78–91; RESP 13–19; TEMP 36.1–37.7; O2SAT 97–100
[2024-10-10] MEDS: HYDROmorphone INJ 2 MG/ML VIAL 0.5 MG IVP ×5 (00:55→19:50)
[2024-10-10] MEDS: metroNIDAZOLE/NS 500 MG IVPB 500 MG/100 ML BAG 200 MG IV ×3 (05:00→21:59)
[2024-10-10 05:01] LABS: Basophils % (Auto) 0 % (0-2.5); Eosinophils % (Auto) 0 % (0-10); Hematocrit 25.3 % (36.0-46.0); Immature Granulocytes % (Auto) 1 % (0-0); Immature Granulocytes Auto 0.07 Thou/mm3 (0.00-0.00); Lymphocytes # (Auto) 1.4 Thou/mm3 (1.0-4.8); Lymphocytes % (Auto) 11 % (10-50); Mean Corpuscular HGB Conc 28.5 g/dl (31.0-37.0); Mean Corpuscular Hemoglobin 21.9 pg (25.0-35.0); Mean Corpuscular Volume 77 fL (80-100); Monocytes # (Auto) 1.1 Thou/mm3 (0.0-0.8); Monocytes % (Auto) 9 % (0-12); Neutrophils # (Auto) 9.6 Thou/mm3 (1.8-7.7); Neutrophils % (Auto) 79 % (37-80); Nucleated Red Blood Cell % 0 /100 WBC (0); Platelet Count 244 Thou/mm3 (140-440); RDW Standard Deviation 53.4 fL (36.4-46.3); Red Blood Count 3.29 Miln/mm3 (4.00-5.20); White Blood Count 12.1 Thou/mm3 (3.6-11.0)
[2024-10-10 05:04] LABS: Hemoglobin 7.2 g/dL (12.0-16.0)
[2024-10-10 05:18] LABS: INR 1.1 (0.9-1.3); Prothrombin Time 11.9 Seconds (9.0-12.2)
[2024-10-10 05:20] LABS: Partial Thromboplastin Time 31.2 Seconds (22.0-36.0)
[2024-10-10 05:39] LABS: Alanine Aminotransferase 8 U/L (10-49); Albumin, Serum 3.1 gm/dL (3.5-5.0); Albumin/Globulin Ratio 1.4 (1.2-2.2); Alkaline Phosphatase 77 U/L (46-116); Anion Gap 8 (7-16); Aspartate Amino Transferase 10 U/L (0-34); BUN/Creatinine Ratio 20 Ratio (12-20); Bilirubin,Total 0.3 mg/dL (0.3-1.2); Blood Urea Nitrogen 12 mg/dL (9-23); Calcium 8.1 mg/dL (8.3-10.6); Calcium (Corrected) 8.8 mg/dL (8.5-10.1); Carbon Dioxide 20.3 mMol/L (20.0-31.0); Cardiac Risk Estimate 2.4 RATIO (3.7-5.6); Chloride 113 mMol/L (98-107); Cholesterol 99 mg/dL (132-200); Creatinine (Component) 0.6 mg/dL (0.6-1.3); Estimated Creatinine Clearance 87.7 mL/min (>60); Globulin 2.2 gm/dL (2.3-3.5); Glucose 96 mg/dL (74-106); HDL Cholesterol 42 mg/dL (40-60); LDL Cholesterol,Calculated 37 mg/dL (0-130); Magnesium 1.8 mg/dL (1.6-2.6); Osmolality,Calculated 280 (275-295); Phosphorous 2.5 mg/dL (2.4-5.1); Sodium 141 mMol/L (136-145); Total Protein 5.3 gm/dL (5.7-8.2); Triglycerides 100 mg/dL (30-150); eGFR > 60 See Note
[2024-10-10] MEDS: SUCRALFATE 1 GM TABLET PO ×2 (09:19→20:18)
[2024-10-10] MEDS: PANTOPRAZOLE 40 MG TABLET PO (09:19)
[2024-10-10] MEDS: CIPROFLOXACIN/D5w 400 MG IVPB 400 MG/200 ML BAG 200 MG IV ×2 (09:19→20:18)
[2024-10-10] MEDS: ONDANSETRON INJ 2 MG/ML INJ 2 ML 4 MG IV (09:20)
--- NOTE | 2024-10-10 11:12 | ESPR_ITS ---
<Statement entered by Octavia Gardner MD - 10/15/24 21:51> I reviewed above note and agree with findings and plans. I have also personally examined the patient with medicine team and went over assessment and plan with medical team including brand marketing intern and resident physician. <Statement entered by Raffi You MD - 10/10/24 19:18> Patient was seen and examined at the bedside. Patient presented yesterday due to sepsis likely secondary to colitis. Patient was managed with IV antibiotic with ciprofloxacin and Flagyl. Will continue with current regimen. Patient is not able to eat properly because of abdominal pain. Patient was still passing 5 bowel movements with diarrhea. Will follow-up with the stool and blood cultures/urine cultures. Continue with Protonix and Carafate. Of note, patient was found to have be hepatitis B positive however could be chronic problem. Will follow-up with the culture results. All labs and orders were reviewed. I saw and examined the patient, and I agree with current management stated by Dr Karl MD,PGY1. Plan of care was discussed with the attending physician and resident physician. Disclaimer: Despite multiple revisions, due to the dictation software being used, the document bellow may not be free of grammatical errors including phonetic/typographic errors. However, this does not deter from our commitment to providing health care in the patient's best interest in mind. Dr. Avelino MD, PGY 2 Documentation for date of: 10/10/24 Subjective Subjective Interval history: No acute over night events reported. Pt is seen and examined at bedside this morning. Although pt endorses to improvement of her symtpoms from the day seh came to the ED however, she continues to complain of diffuse abdominal pain and diarrhea. Pt states she has 5 episodes fo brown diarrhea over night and 3 this morning. Denies melena or hematochezia. Pt also is unable to keep any food down due to nausea. Pt also endorsis to mild diziness. vitals are stable. Hgb is 7.2 and Hct 25.3 . pt will need further work up for GI causes of acute anemia and diarrhea. Consult to GI is placed and calprotectin is ordered. Pt will need further work up for IBD and microscopic colitis. Exam Vital Signs Temp Pulse Resp BP Pulse Ox O2 Del Method 97.4 F 90 19 115/67 97 Room Air 10/10/24 07:41 10/10/24 07:41 10/10/24 07:41 10/10/24 07:41 10/10/24 07:41 10/10/24 07:41 Narrative Exam GENERAL: A&Ox3 . Awake, Not in acute distress NEURO: no focal neurological deficits HEENT: Atraumatic, Normocephalic. mucous membranes moist. Eyes open, symmetrical, & clear HEART: Normal Heart Sounds LUNGS: Clear to auscultation with no wheezing or crackles. ABDOMEN: soft, non-distended, tenderness to palpation SKIN: No Rash or ecchymoses EXTREMITIES: No edema, tenderness, able to move all 4 extremities, pedal pulses palpated Objective Labs 10/10/24 04:10 10/10/24 04:10 Labs: Laboratory Results - last 24 hr 10/09/24 10/10/24 11:53 04:10 WBC 15.7 H D 12.1 H RBC 3.21 L 3.29 L Hgb 7.2 L D 7.2 L Hct 24.5 L 25.3 L MCV 76 L 77 L MCH 22.4 L 21.9 L MCHC 29.4 L 28.5 L RDW Std Deviation 52.0 H 53.4 H Plt Count 262 D 244 Neut % (Auto) 79 79 Lymph % (Auto) 10 11 [place] % (Auto) 9 9 Eos % (Auto) 0 0 Baso % (Auto) 0 0 Neut # (Auto) 12.5 H 9.6 H Lymph # (Auto) 1.6 1.4 [place] # (Auto) 1.5 H 1.1 H Eos # (Auto) 0.0 0.0 Baso # (Auto) 0.0 0.0 Immature Gran # (Auto) 0.11 H 0.07 H Absolute Nucleated RBC 0.00 0.00 Immature Gran % 1 H 1 H Nucleated RBC % 0 0 PT 11.9 INR 1.1 APTT 31.2 D Sodium 141 141 Potassium 3.8 4.0 Chloride 112 H 113 H Carbon Dioxide 19.5 L 20.3 Anion Gap 10 8 BUN 29 H 12 Creatinine 1.1 D 0.6 D Estim Creat Clear Calc 47.8 L 87.7 eGFR > 60 > 60 BUN/Creatinine Ratio 26 H 20 Glucose [address] Glu mg/dL 111 Hemoglobin A1c 5.5 Calculated Osmolality 287 280 Calcium 7.9 L 8.1 L Corrected Calcium 8.5 8.8 Phosphorus 2.5 Magnesium 1.8 Total Bilirubin 0.2 L 0.3 AST 14 10 ALT 12 8 L Alkaline Phosphatase 89 D 77 Total Protein 5.5 L 5.3 L Albumin 3.3 L D 3.1 L Globulin 2.2 L 2.2 L Albumin/Globulin Ratio 1.5 1.4 Triglycerides 100 Cholesterol 99 L LDL Cholesterol, Calc 37 HDL Cholesterol 42 Cholesterol/HDL Ratio 2.4 L Quality Measures Quality Measures VTE prophylaxis (scds) Assessment & Plan Assessment Current Active Medications: Generic Name Dose Route Start Last Admin Trade Name Freq PRN Reason Stop Dose Admin Acetaminophen 650 mg 10/10/24 08:31 Acetaminophen 325 Mg Tablet PO 11/08/24 06:26 Q6H PRN Fever >100 or pain 1-5 Hydrocodone Bitart/Acetaminophen 1 tab 10/10/24 08:31 Hydrocodone/Apap 5/325 Tablet PO 10/14/24 06:26 Q4HR PRN Pain Scale 6-10 (Moderate Hydromorphone HCl 0.5 mg 10/10/24 08:31 10/10/24 09:16 Hydromorphone Inj 2 Mg/Ml Vial IVP 10/15/24 08:29 0.5 mg Q4HR PRN Administration BREAKTHROUGH PAIN Metronidazole 500 mg in 100 mls @ 200 mls/hr 10/09/24 09:00 10/10/24 05:00 Flagyl 500 Mg Iv IV 10/16/24 08:59 200 mls/hr Q8HR FAHAD Administration Ciprofloxacin/Dextrose 400 mg in 200 mls @ 200 mls/hr 10/09/24 09:00 10/10/24 09:19 Cipro Ivpb IV 10/16/24 08:59 200 mls/hr Q12HR FAHAD Administration Lactated Ringer's 1,000 mls @ 75 mls/hr 10/10/24 10:54 Lactated Ringers IV 11/09/24 10:53 .[id number] FAHAD Ondansetron HCl 4 mg 10/09/24 06:27 10/10/24 09:20 Ondansetron Inj 2 Mg/Ml Inj 2 Ml IV 11/08/24 06:26 4 mg Q6H PRN Administration NAUSEA OR VOMITING Protocol Pantoprazole Sodium 40 mg 10/09/24 09:00 10/10/24 09:19 Pantoprazole 40 Mg Tablet PO 11/08/24 08:59 40 mg QDAY FAHAD Administration Sucralfate 1 gm 10/09/24 09:00 10/10/24 09:19 Sucralfate 1 Gm Tablet PO 11/08/24 08:59 1 gm BID FAHAD Administration Plan Ms. Mendoza is a 43 y/o female with PMHx of hypertension, peptic ulcer disease, Hx of GI bleed, chronic anemia and chronic back pain who is currently admitted for sepsis secondary to enterocolitis, GI losses and syncope workup. #Sepsis secondary to #Acute enterocolitis -Pt presented with vomiting, diarrhea, diffuse abdominal pain and fever -SIRS 3/4 met: tachycardia, leukocytosis (WBC 24) and fever -CT abdomen pelvis shows imaging signs of acute-colitis -Lactate 1.6, procalcitonin 83.1 -Hypotension likely related to GI losses Plan: -Maintenance LR fluids 75 cc an hour -Pain meds ordered prn -Zofran prn -Cipro 500 mg every 12 IV and Flagyl 500 mg every 8 hours IV hours #Syncope - improved #Hypotension secondary to #GI losses -This is likely related to GI losses, hypovolemia or orthostatic hypotension Plan: -Activity as tolerated -Full liquid diet, advance as tolerated #Microcytic chronic anemia #Symptomatic acute anemia -hemoglobin 7.2, hematocrit 24.5, MCV 76, MCH 22.4 -Iron panel: Iron 38, TIBC 410, iron saturation 9%, unsaturated iron binding 372 -Patient takes ferrous sulfate at home Plan: -Peripheral blood smear -Avoid NSAIDs, use SCDs for DVT prophylaxis -Will transfused Hgb <7 -Pt needs further work up for IBD and microscopic colitis -Calprotectin is ordered -Consulted GI, appreciate recommendations #Acute kidney injury- resolved #Metabolic acidosis, secondary to GI losses Likely prerenal Related to hypovolemia and GI losses (Nausea and diarrhea) on admission Creatinine 2.6, BUN 40 HCO3-: 19.5 Plan: -Maintenance LR 75 cc/hour #Hx of Peptic ulcer disease #Iron deficiency Anemia -Pt has history of PUD and anemia, and takes ferrous sulfate daily which could be contributing to black stool. Plan: -FOBT -Continue with Protonix 40 mg IV -Continue with Carafate 1g every 12 hours #Hx of HTN -Holding blood pressure medicines in setting of hypotension #Hx of chronic back pain -Resume home [place] #Health Maintenance Disposition: [facility] DVT prophylaxis: SCDs GI prophylaxis: Protonix Diet: Cardiac CODE STATUS: Full Assessment and plan discussed with my senior resident Dr. You & attending physician Dr. Jj Barajas (PGY-1)- Internal medicine resident
[2024-10-10] MEDS: RINGERS LACTATED 1000 ML 1,000 ML 75 ML IV (11:28)
[2024-10-10] MEDS: HYDROcodone/APAP 5/325 TABLET 1 TAB PO ×3 (11:47→21:58)
--- NOTE | 2024-10-10 15:51 | ESPR_ITS ---
Documentation for date of: 10/10/24 Exam Vital Signs Temp Pulse Resp BP Pulse Ox O2 Del Method 99.8 F 83 18 104/54 L 99 Room Air 10/10/24 11:51 10/10/24 11:51 10/10/24 11:51 10/10/24 11:51 10/10/24 11:51 10/10/24 11:51 Objective Labs 10/10/24 04:10 10/10/24 04:10 Labs: Laboratory Results - last 24 hr 10/10/24 04:10 WBC 12.1 H RBC 3.29 L Hgb 7.2 L Hct 25.3 L MCV 77 L MCH 21.9 L MCHC 28.5 L RDW Std Deviation 53.4 H Plt Count 244 Neut % (Auto) 79 Lymph % (Auto) 11 [place] % (Auto) 9 Eos % (Auto) 0 Baso % (Auto) 0 Neut # (Auto) 9.6 H Lymph # (Auto) 1.4 [place] # (Auto) 1.1 H Eos # (Auto) 0.0 Baso # (Auto) 0.0 Immature Gran # (Auto) 0.07 H Absolute Nucleated RBC 0.00 Immature Gran % 1 H Nucleated RBC % 0 PT 11.9 INR 1.1 APTT 31.2 D Sodium 141 Potassium 4.0 Chloride 113 H Carbon Dioxide 20.3 Anion Gap 8 BUN 12 Creatinine 0.6 D Estim Creat Clear Calc 87.7 eGFR > 60 BUN/Creatinine Ratio 20 Glucose 96 Calculated Osmolality 280 Calcium 8.1 L Corrected Calcium 8.8 Phosphorus 2.5 Magnesium 1.8 Total Bilirubin 0.3 AST 10 ALT 8 L Alkaline Phosphatase 77 Total Protein 5.3 L Albumin 3.1 L Globulin 2.2 L Albumin/Globulin Ratio 1.4 Triglycerides 100 Cholesterol 99 L LDL Cholesterol, Calc 37 HDL Cholesterol 42 Cholesterol/HDL Ratio 2.4 L Assessment & Plan Time Spent With Patient Time: Total time spent is greater than 50% in coordination of care (as documented) at patient's floor/unit and/or counseling patient:
--- NOTE | 2024-10-10 18:57 | PD.IMCONS ---
HPI Data of Consult Requesting Physician: Octavia Gardner MD Primary Care Provider: SARAH Hyman(ARIACHL) Consult Narrative Reason for consult: Dropping hemoglobin hematocrit diarrhea syncope vomiting H/O pyloric ulcer History of present illness: 43 years old female being evaluated request of the internal medicine team for her kidney presentation to the emergency room with syncope persistent diarrhea at least 8-10 episodes a day nausea vomiting and dark stools Patient is syncopal episode at a ball game was brought into the emergency room with complaints of chest pain epigastric pain generalized weakness CT scan of the abdomen pelvis without contrast showed 2 mm nonobstructing right renal stone and diffuse nonspecific colitis Patient did have a GI bleed in July 2023 underwent on 07/21/2023 upper endoscopy which showed gastritis and a pyloric channel ulcer cc:: cc: Octavia Gardner MD Review of Systems Review of Systems Systems Reviewed: All systems reviewed, normal except as documented Past Medical History Surgical History OTHER SURGICAL HX: Essential hypertension Chronic pain syndrome Meds Home Medications and Allergies Home Medications ?Medication ?Instructions ?Recorded ?Confirmed ?Type amlodipine 5 mg tablet 10 mg PO QPM 01/08/22 10/09/24 History gabapentin 100 mg capsule 200 mg PO HS 01/08/22 10/09/24 History hydrocodone 10 mg-acetaminophen 1 - 2 tab PO Q4H PRN Pain 01/08/22 10/09/24 History 325 mg tablet lisinopril 20 mg tablet 20 mg PO QDAY 01/08/22 10/09/24 History ferrous sulfate 325 mg (65 mg 325 mg PO BID 02/11/23 10/09/24 History iron) tablet (FeroSul) losartan 100 mg tablet (Cozaar) 100 mg PO .COMPLEX 10/09/24 10/09/24 History Allergies Allergy/AdvReac Type Severity Reaction Status Date / Time tramadol AdvReac Severe anxiety Verified 05/25/24 09:30 Exam Vital Signs Temp Pulse Resp BP Pulse Ox O2 Del Method 97.0 F 81 18 115/66 100 Room Air 10/10/24 16:00 10/10/24 16:00 10/10/24 16:00 10/10/24 16:00 10/10/24 16:00 10/10/24 16:00 Constitutional Comments: Chronically ill-appearing Routine Respiratory Exam Comments: Normal to auscultation Routine Abdominal Exam Comments: Positive bowel sounds tender Results Labs 10/10/24 04:10 10/10/24 04:10 Labs: Short CBC 10/10/24 Range/Units 04:10 WBC 12.1 H (3.6-11.0) Thou/mm3 Hgb 7.2 L (12.0-16.0) g/dL Hct 25.3 L (36.0-46.0) % Plt Count 244 (140-440) Thou/mm3 BMP 10/10/24 04:10 Sodium 141 Potassium 4.0 Chloride 113 H Carbon Dioxide 20.3 BUN 12 Creatinine 0.6 D Glucose 96 Calcium 8.1 L Liver Function 10/10/24 Range/Units 04:10 Total Bilirubin 0.3 (0.3-1.2) mg/dL AST 10 (0-34) U/L ALT 8 L (10-49) U/L Alkaline Phosphatase 77 (46-116) U/L Albumin 3.1 L (3.5-5.0) gm/dL Assessment and Plan Additional Assessment & Plan Additional Plan: # Anemia blood loss in a patient with previous history of pyloric channel ulcer with nausea vomiting Upper endoscopy with possible biopsy therapeutic intervention scheduled for tomorrow # Chronic persistent diarrhea with abnormal CT scan of the abdomen pelvis showing nonspecific diffuse colitis After endoscopy we will schedule fiberoptic colonoscopy with possible biopsies Stool for Gram stain stool for culture and sensitivity fecal calprotectin C. difficile by PCR ANCA antibody CRP Other medical problems include # Syncope # Essential hypertension
[2024-10-10 19:59] LABS: Sed Rate (ESR) 24 mm/hr (0-20)
[2024-10-10 20:23] LABS: C-Reactive Protein 12.1 mg/dL (0.0-0.9)
[2024-10-11] VITALS (17 sets, daily range): BP systolic 113–160; BP diastolic 65–88; PULSE 65–100; RESP 10–21; TEMP 36.3–37.2; O2SAT 95–100; BMI 29.4
[2024-10-11] MEDS: HYDROmorphone INJ 2 MG/ML VIAL 0.5 MG IVP ×5 (00:13→20:52)
[2024-10-11] MEDS: RINGERS LACTATED 1000 ML 1,000 ML 75 ML IV ×2 (02:44→20:36)
[2024-10-11] MEDS: HYDROcodone/APAP 5/325 TABLET 1 TAB PO ×2 (02:44→08:22)
[2024-10-11 05:15] LABS: Basophils % (Auto) 0 % (0-2.5); Eosinophils # (Auto) 0.1 Thou/mm3 (0.0-0.5); Eosinophils % (Auto) 1 % (0-10); Immature Granulocytes % (Auto) 1 % (0-0); Immature Granulocytes Auto 0.11 Thou/mm3 (0.00-0.00); Lymphocytes # (Auto) 1.1 Thou/mm3 (1.0-4.8); Lymphocytes % (Auto) 11 % (10-50); Mean Corpuscular HGB Conc 29.1 g/dl (31.0-37.0); Mean Corpuscular Hemoglobin 21.9 pg (25.0-35.0); Mean Corpuscular Volume 75 fL (80-100); Monocytes # (Auto) 0.7 Thou/mm3 (0.0-0.8); Monocytes % (Auto) 7 % (0-12); Neutrophils # (Auto) 7.9 Thou/mm3 (1.8-7.7); Neutrophils % (Auto) 80 % (37-80); Nucleated Red Blood Cell % 0 /100 WBC (0); Platelet Count 230 Thou/mm3 (140-440); RDW Standard Deviation 51.8 fL (36.4-46.3); Red Blood Count 2.97 Miln/mm3 (4.00-5.20); White Blood Count 9.8 Thou/mm3 (3.6-11.0)
[2024-10-11] MEDS: metroNIDAZOLE/NS 500 MG IVPB 500 MG/100 ML BAG 200 MG IV ×3 (05:34→23:17)
[2024-10-11 05:43] LABS: Hematocrit 22.3 % (36.0-46.0); Hemoglobin 6.5 g/dL (12.0-16.0)
[2024-10-11 06:11] LABS: Alanine Aminotransferase 8 U/L (10-49); Anion Gap 10 (7-16); Aspartate Amino Transferase 11 U/L (0-34); BUN/Creatinine Ratio 10 Ratio (12-20); Bilirubin,Total 0.2 mg/dL (0.3-1.2); Blood Urea Nitrogen < 5 mg/dL (9-23); Calcium 8.2 mg/dL (8.3-10.6); Carbon Dioxide 18.7 mMol/L (20.0-31.0); Chloride 112 mMol/L (98-107); Creatinine (Component) 0.5 mg/dL (0.6-1.3); Estimated Creatinine Clearance 105.2 mL/min (>60); Globulin 2.3 gm/dL (2.3-3.5); Glucose 89 mg/dL (74-106); Osmolality,Calculated 277 (275-295); Potassium 3.6 mMol/L (3.4-5.1); Sodium 141 mMol/L (136-145); Total Protein 5.3 gm/dL (5.7-8.2); eGFR > 60 See Note
[2024-10-11 06:12] LABS: Albumin/Globulin Ratio 1.3 (1.2-2.2); Alkaline Phosphatase 105 U/L (46-116)
[2024-10-11] MEDS: SUCRALFATE 1 GM TABLET PO ×2 (08:22→20:34)
[2024-10-11] MEDS: PANTOPRAZOLE 40 MG TABLET PO (08:22)
[2024-10-11] MEDS: CIPROFLOXACIN/D5w 400 MG IVPB 400 MG/200 ML BAG 200 MG IV ×2 (08:22→20:52)
[2024-10-11 09:32] LABS: Magnesium 1.4 mg/dL (1.6-2.6); Phosphorous 2.6 mg/dL (2.4-5.1)
--- NOTE | 2024-10-11 11:49 | ESPR_ITS ---
<Statement entered by Raffi You MD - 10/11/24 13:24> Patient was seen and examined at the bedside. Patient reported that she did not pass any bowel movement today. She reported to have improvement in her abdominal pain. GI specialist recommended that he will likely perform an EGD today. Patient's hemoglobin dropped to 6.5 therefore 1 unit PRBC was ordered. Patient was complaining of headache with Dilaudid therefore that was discontinued. CRP and ANCA workup was ordered by GI specialist. Will follow-up with post H&H. White count remains stable. No fever spike recorded overnight. Kidney functions remained stable. All labs and orders were reviewed. I saw and examined the patient, and I agree with current management stated by Dr Karl MD,PGY1. Plan of care was discussed with the attending physician and resident physician. Disclaimer: Despite multiple revisions, due to the dictation software being used, the document bellow may not be free of grammatical errors including phonetic/typographic errors. However, this does not deter from our commitment to providing health care in the patient's best interest in mind. Dr. Avelino MD, PGY 2 Documentation for date of: 10/11/24 Subjective Subjective Interval history: Overnight team reported patient hemoglobin dropped below 7 therefore 1 unit of PRBCs ordered. Patient seen and examined at bedside this morning patient states that her diarrhea is worse and she had 10 episodes of diarrhea this morning and is been having a headache she thinks it might be due to Dilaudid. Patient is unable to tolerate food but is trying to drink water patient continues to have diffuse abdominal pain. Patient still also feels nausea but denies any episodes of vomiting today. EGD is scheduled for today. Exam Vital Signs Temp Pulse Resp BP Pulse Ox O2 Del Method 98.1 F 82 17 116/73 97 Room Air 10/11/24 07:44 10/11/24 07:44 10/11/24 07:44 10/11/24 07:44 10/11/24 07:44 10/11/24 07:44 Narrative Exam GENERAL: A&Ox3 . Awake, Not in acute distress NEURO: no focal neurological deficits HEENT: Atraumatic, Normocephalic. mucous membranes moist. Eyes open, symmetrical, & clear HEART: Normal Heart Sounds LUNGS: Clear to auscultation with no wheezing or crackles. ABDOMEN: soft, non-distended, tenderness to palpation SKIN: No Rash or ecchymoses EXTREMITIES: No edema, tenderness, able to move all 4 extremities, pedal pulses palpated Objective Labs 10/13/24 04:34 10/13/24 04:34 Labs: Laboratory Results - last 24 hr 10/10/24 10/11/24 10/11/24 19:25 04:37 04:39 WBC 9.8 RBC 2.97 L Hgb 6.5 L* Hct 22.3 L MCV 75 L MCH 21.9 L MCHC 29.1 L RDW Std Deviation 51.8 H Plt Count 230 Neut % (Auto) 80 Lymph % (Auto) 11 [place] % (Auto) 7 Eos % (Auto) 1 Baso % (Auto) 0 Neut # (Auto) 7.9 H Lymph # (Auto) 1.1 [place] # (Auto) 0.7 Eos # (Auto) 0.1 Baso # (Auto) 0.0 Immature Gran # (Auto) 0.11 H Absolute Nucleated RBC 0.00 Immature Gran % 1 H Nucleated RBC % 0 ESR 24 H Sodium 141 Potassium 3.6 Chloride 112 H Carbon Dioxide 18.7 L Anion Gap 10 BUN < 5 L Creatinine 0.5 L Estim Creat Clear Calc 105.2 eGFR > 60 BUN/Creatinine Ratio 10 L Glucose 89 Calculated Osmolality 277 Calcium 8.2 L Corrected Calcium 9.0 Phosphorus 2.6 Magnesium 1.4 L Total Bilirubin 0.2 L AST 11 ALT 8 L Alkaline Phosphatase 105 D C-Reactive Prot, Quant 12.1 H Total Protein 5.3 L Albumin 3.0 L Globulin 2.3 Albumin/Globulin Ratio 1.3 Crossmatch 10/11/24 11:33 WBC RBC Hgb Hct MCV MCH MCHC RDW Std Deviation Plt Count Neut % (Auto) Lymph % (Auto) [place] % (Auto) Eos % (Auto) Baso % (Auto) Neut # (Auto) Lymph # (Auto) [place] # (Auto) Eos # (Auto) Baso # (Auto) Immature Gran # (Auto) Absolute Nucleated RBC Immature Gran % Nucleated RBC % ESR Sodium Potassium Chloride Carbon Dioxide Anion Gap BUN Creatinine Estim Creat Clear Calc eGFR BUN/Creatinine Ratio Glucose Calculated Osmolality Calcium Corrected Calcium Phosphorus Magnesium Total Bilirubin AST ALT Alkaline Phosphatase C-Reactive Prot, Quant Total Protein Albumin Globulin Albumin/Globulin Ratio Crossmatch See Detail Quality Measures Quality Measures none Assessment & Plan Assessment Current Active Medications: Generic Name Dose Route Start Last Admin Trade Name Bertrandq PRN Reason Stop Dose Admin Acetaminophen 650 mg 10/10/24 08:31 Acetaminophen 325 Mg Tablet PO 11/08/24 06:26 Q6H PRN Fever >100 or pain 1-5 Hydrocodone Bitart/Acetaminophen 1 tab 10/10/24 08:31 10/11/24 08:22 Hydrocodone/Apap 5/325 Tablet PO 10/14/24 06:26 1 tab Q4HR PRN Administration Pain Scale 6-10 (Moderate Hydromorphone HCl 0.5 mg 10/10/24 08:31 10/11/24 11:27 Hydromorphone Inj 2 Mg/Ml Vial IVP 10/15/24 08:29 0.5 mg Q4HR PRN Administration BREAKTHROUGH PAIN Metronidazole 500 mg in 100 mls @ 200 mls/hr 10/09/24 09:00 10/11/24 05:34 Flagyl 500 Mg Iv IV 10/16/24 08:59 200 mls/hr Q8HR FAHAD Administration Ciprofloxacin/Dextrose 400 mg in 200 mls @ 200 mls/hr 10/09/24 09:00 10/11/24 08:22 Cipro Ivpb IV 10/16/24 08:59 200 mls/hr Q12HR FAHAD Administration Lactated Ringer's 1,000 mls @ 75 mls/hr 10/10/24 10:54 10/11/24 02:44 Lactated Ringers IV 11/09/24 10:53 75 mls/hr .[id number] FAHAD Administration Ondansetron HCl 4 mg 10/09/24 06:27 10/10/24 09:20 Ondansetron Inj 2 Mg/Ml Inj 2 Ml IV 11/08/24 06:26 4 mg Q6H PRN Administration NAUSEA OR VOMITING Protocol Pantoprazole Sodium 40 mg 10/09/24 09:00 10/11/24 08:22 Pantoprazole 40 Mg Tablet PO 11/08/24 08:59 40 mg QDAY FAHAD Administration Sucralfate 1 gm 10/09/24 09:00 10/11/24 08:22 Sucralfate 1 Gm Tablet PO 11/08/24 08:59 1 gm BID FAHAD Administration Plan Ms. Mendoza is a 43 y/o female with PMHx of hypertension, peptic ulcer disease, Hx of GI bleed, chronic anemia and chronic back pain who is currently admitted for sepsis secondary to enterocolitis, GI losses and syncope workup. #Sepsis secondary to #Acute enterocolitis -Pt presented with vomiting, diarrhea, diffuse abdominal pain and fever -SIRS 3/4 met: tachycardia, leukocytosis (WBC 24) and fever -CT abdomen pelvis shows imaging signs of acute-colitis -Lactate 1.6, procalcitonin 83.1 -Hypotension likely related to GI losses Plan: -Maintenance LR fluids 75 cc an hour -Pain meds ordered prn -Zofran prn -Cipro 500 mg every 12 IV and Flagyl 500 mg every 8 hours IV hours -Pending EGD #Syncope - improved #Hypotension secondary to #GI losses -This is likely related to GI losses, hypovolemia or orthostatic hypotension Plan: -Activity as tolerated -Full liquid diet, advance as tolerated #Microcytic chronic anemia #Symptomatic acute anemia -hemoglobin 7.2, hematocrit 24.5, MCV 76, MCH 22.4 -Iron panel: Iron 38, TIBC 410, iron saturation 9%, unsaturated iron binding 372 -Patient takes ferrous sulfate at home Plan: -Peripheral blood smear -Avoid NSAIDs, use SCDs for DVT prophylaxis -Will transfused Hgb <7 -Pt needs further work up for IBD and microscopic colitis -Calprotectin is ordered -Consulted GI, appreciate recommendations #Acute kidney injury- resolved #Metabolic acidosis, secondary to GI losses Likely prerenal Related to hypovolemia and GI losses (Nausea and diarrhea) on admission Creatinine 2.6, BUN 40 HCO3-: 19.5 Plan: -Maintenance LR 75 cc/hour #Hx of Peptic ulcer disease #Iron deficiency Anemia -Pt has history of PUD and anemia, and takes ferrous sulfate daily which could be contributing to black stool. Plan: -FOBT -Continue with Protonix 40 mg IV -Continue with Carafate 1g every 12 hours #Hx of HTN -Holding blood pressure medicines in setting of hypotension #Hx of chronic back pain -Resume home [place] #Health Maintenance Disposition: [facility], pending EGD DVT prophylaxis: SCDs GI prophylaxis: Protonix Diet: Cardiac CODE STATUS: Full Assessment and plan discussed with my senior resident Dr. You & attending physician Dr. Pattie Barajas (PGY-1)- Internal medicine resident Attending Provider Attestation/Addendum Patient seen and examined. She is here for enterocolitis and JAMIE pending endoscopic workup. I discussed with and supervised the resident physician who took care of this patient. I agree with the assessment and plan as above.
--- NOTE | 2024-10-11 14:49 | SUR.PHASEI ---
1449: Pt. AAOx4, vitals stable, breathing unlabored, no complaint of pain or nausea, no dressing in place, no active bleed noted, report received from Kellie JENKINS.
--- NOTE | 2024-10-11 15:20 | SUR.PHASEI ---
1520: Pt. AAOx4, vitals stable, breathing unlabored, no complaint of pain or nausea, no dressing in place, no active bleed noted, report given to rachel RN prior to transfer to room. Family aware of transfer to room.
[2024-10-11] MEDS: NA SU/NAHCO3/KC/PEG (Golytely) 4,000 ML BTL 4000 ML PO (16:05)
--- NOTE | 2024-10-11 19:28 | PC.NURSE ---
called labor conciliator re inquiring re order for fecal globin by [facility]- It's a send out per labor conciliator and the staff in charge of send out will be here around 0600 tomorrow.
[2024-10-11 19:47] LABS: Hemoglobin 9.7 g/dL (12.0-16.0)
[2024-10-11] MEDS: Magnesium Sulfate 2 GM Ivpb 2 GM/50 ML BAG IV (20:34)
[2024-10-11 20:49] LABS: Stool for WBCs Few (Negative)
[2024-10-12] VITALS (20 sets, daily range): BP systolic 126–175; BP diastolic 70–91; PULSE 56–85; RESP 12–20; TEMP 36.1–37.1; O2SAT 92–100
[2024-10-12] MEDS: HYDROmorphone INJ 2 MG/ML VIAL 0.5 MG IVP ×4 (02:52→20:55)
--- NOTE | 2024-10-12 03:40 | PC.NURSE ---
computer downtime from 0200 to 0300 a.m.
[2024-10-12 06:03] LABS: Basophils # (Auto) 0.1 Thou/mm3 (0.0-0.2); Basophils % (Auto) 1 % (0-2.5); Eosinophils # (Auto) 0.1 Thou/mm3 (0.0-0.5); Eosinophils % (Auto) 1 % (0-10); Hematocrit 26.1 % (36.0-46.0); Immature Granulocytes % (Auto) 1 % (0-0); Immature Granulocytes Auto 0.03 Thou/mm3 (0.00-0.00); Lymphocytes # (Auto) 1.6 Thou/mm3 (1.0-4.8); Lymphocytes % (Auto) 24 % (10-50); Mean Corpuscular HGB Conc 30.3 g/dl (31.0-37.0); Mean Corpuscular Hemoglobin 23.2 pg (25.0-35.0); Mean Corpuscular Volume 77 fL (80-100); Monocytes # (Auto) 0.5 Thou/mm3 (0.0-0.8); Monocytes % (Auto) 8 % (0-12); Neutrophils # (Auto) 4.2 Thou/mm3 (1.8-7.7); Neutrophils % (Auto) 65 % (37-80); Nucleated Red Blood Cell % 0 /100 WBC (0); Platelet Count 254 Thou/mm3 (140-440); RDW Standard Deviation 52.2 fL (36.4-46.3); Red Blood Count 3.41 Miln/mm3 (4.00-5.20); White Blood Count 6.5 Thou/mm3 (3.6-11.0)
[2024-10-12] MEDS: metroNIDAZOLE/NS 500 MG IVPB 500 MG/100 ML BAG 200 MG IV ×3 (06:07→23:09)
[2024-10-12 06:08] LABS: Hemoglobin 7.9 g/dL (12.0-16.0)
[2024-10-12 06:56] LABS: Alanine Aminotransferase 10 U/L (10-49); Albumin, Serum 3.2 gm/dL (3.5-5.0); Albumin/Globulin Ratio 1.4 (1.2-2.2); Alkaline Phosphatase 75 U/L (46-116); Anion Gap 8 (7-16); Aspartate Amino Transferase 13 U/L (0-34); BUN/Creatinine Ratio 10 Ratio (12-20); Bilirubin,Total < 0.2 mg/dL (0.3-1.2); Blood Urea Nitrogen < 5 mg/dL (9-23); Calcium 8.2 mg/dL (8.3-10.6); Calcium (Corrected) 8.8 mg/dL (8.5-10.1); Carbon Dioxide 24.7 mMol/L (20.0-31.0); Chloride 109 mMol/L (98-107); Creatinine (Component) 0.5 mg/dL (0.6-1.3); Estimated Creatinine Clearance 105.2 mL/min (>60); Globulin 2.3 gm/dL (2.3-3.5); Glucose 87 mg/dL (74-106); Magnesium 1.8 mg/dL (1.6-2.6); Osmolality,Calculated 279 (275-295); Phosphorous 3.6 mg/dL (2.4-5.1); Potassium 3.4 mMol/L (3.4-5.1); Sodium 142 mMol/L (136-145); Total Protein 5.5 gm/dL (5.7-8.2); eGFR > 60 See Note
[2024-10-12] MEDS: PANTOPRAZOLE 40 MG TABLET PO (08:39)
[2024-10-12] MEDS: CIPROFLOXACIN/D5w 400 MG IVPB 400 MG/200 ML BAG 200 MG IV ×2 (08:39→20:55)
[2024-10-12] MEDS: SUCRALFATE 1 GM TABLET PO ×2 (08:39→21:18)
[2024-10-12 09:13] LABS: Immature Reticulocyte Fraction 18.8 % (3.0-15.9); Reticulocyte % (Auto) 1.2 % (0.5-1.5); Reticulocyte Absolute Auto 40.1 Biln/L (25.0-75.0); Reticulocyte Hgb Content 24.4 pg (28.0-35.0)
[2024-10-12 10:03] LABS: Clostridium Difficile PCR Negative (Negative)
[2024-10-12] MEDS: RINGERS LACTATED 1000 ML 1,000 ML 75 ML IV (13:03)
--- NOTE | 2024-10-12 14:19 | ESPR_ITS ---
<Statement entered by Raffi You MD - 10/12/24 21:37> Patient was seen and examined at the bedside. Patient reported improvement in her abdominal pain. EGD showed esophageal ulcer and gastritis pattern. Patient had a drop in hemoglobin again. GI specialist recommended to perform colonoscopy as patient is due for it we will follow-up with colonoscopy results. Will continue with IV antibiotic therapy. Will continue with IV fluid as well. All labs and orders were reviewed. I saw and examined the patient, and I agree with current management stated by Dr Karl MD,PGY1. Plan of care was discussed with the attending physician and resident physician. Disclaimer: Despite multiple revisions, due to the dictation software being used, the document bellow may not be free of grammatical errors including phonetic/typographic errors. However, this does not deter from our commitment to providing health care in the patient's best interest in mind. Dr. Farrah MD, PGY 2 Documentation for date of: 10/12/24 Subjective Subjective Interval history: No acute overnight events reported patient seen and examined at bedside this morning. Patient is saturating above 95% on room air resting comfortably. Patient endorses to significant improvement of her symptoms denies any dizziness or shortness of breath and abdominal pain has resolved. She continues to have mild flank pain on the right. Patient underwent EGD last night and findings were consistent with gastritis along with non- bleeding ulcer. Patient will undergo colonoscopy today currently drinking GoLytely for prep. Hemoglobin is stable at 7.9. Patient has no other complaints. Exam Vital Signs Temp Pulse Resp BP Pulse Ox O2 Del Method O2 Flow Rate 97.3 F 71 13 153/82 H 98 Nasal Cannula 3 10/12/24 12:00 10/12/24 12:00 10/12/24 12:00 10/12/24 12:10/12/24 12:10/12/24 12:10/12/24 12:00 Narrative Exam GENERAL: A&Ox3 . Awake, Not in acute distress NEURO: no focal neurological deficits HEENT: Atraumatic, Normocephalic. mucous membranes moist. Eyes open, symmetrical, & clear HEART: Normal Heart Sounds LUNGS: Clear to auscultation with no wheezing or crackles. ABDOMEN: soft, non-distended, non-tender, bowel sounds heard, no guarding or rebound tenderness SKIN: No Rash or ecchymoses EXTREMITIES: No edema, tenderness, able to move all 4 extremities, pedal pulses palpated Objective Labs 10/13/24 04:34 10/13/24 04:34 Labs: Laboratory Results - last 24 hr 10/11/24 10/11/24 10/11/24 11:33 16:33 19:39 WBC RBC Hgb 9.7 L D Hct 32.0 L MCV MCH MCHC RDW Std Deviation Plt Count Neut % (Auto) Lymph % (Auto) [place] % (Auto) Eos % (Auto) Baso % (Auto) Neut # (Auto) Lymph # (Auto) [place] # (Auto) Eos # (Auto) Baso # (Auto) Immature Gran # (Auto) Absolute Nucleated RBC Immature Gran % Nucleated RBC % Retic Count (auto) Absolute Retic Immature Retic Fraction Retic Hgb Content CHr Sodium Potassium Chloride Carbon Dioxide Anion Gap BUN Creatinine Estim Creat Clear Calc eGFR BUN/Creatinine Ratio Glucose Calculated Osmolality Calcium Corrected Calcium Phosphorus Magnesium Total Bilirubin AST ALT Alkaline Phosphatase Total Protein Albumin Globulin Albumin/Globulin Ratio Stool for White Cells Few A Stl C. diff Tox B Gene Negative Crossmatch See Detail 10/12/24 05:35 WBC 6.5 RBC 3.41 L Hgb 7.9 L Hct 26.1 L MCV 77 L MCH 23.2 L MCHC 30.3 L RDW Std Deviation 52.2 H Plt Count 254 Neut % (Auto) 65 Lymph % (Auto) 24 [place] % (Auto) 8 Eos % (Auto) 1 Baso % (Auto) 1 Neut # (Auto) 4.2 Lymph # (Auto) 1.6 Fannin # (Auto) 0.5 Eos # (Auto) 0.1 Baso # (Auto) 0.1 Immature Gran # (Auto) 0.03 H Absolute Nucleated RBC 0.00 Immature Gran % 1 H Nucleated RBC % 0 Retic Count (auto) 1.2 Absolute Retic 40.1 Immature Retic Fraction 18.8 H Retic Hgb Content CHr 24.4 L Sodium 142 Potassium 3.4 Chloride 109 H Carbon Dioxide 24.7 Anion Gap 8 BUN < 5 L Creatinine 0.5 L Estim Creat Clear Calc 105.2 eGFR > 60 BUN/Creatinine Ratio 10 L Glucose 87 Calculated Osmolality 279 Calcium 8.2 L Corrected Calcium 8.8 Phosphorus 3.6 Magnesium 1.8 Total Bilirubin < 0.2 L AST 13 ALT 10 Alkaline Phosphatase 75 D Total Protein 5.5 L Albumin 3.2 L Globulin 2.3 Albumin/Globulin Ratio 1.4 Stool for White Cells Stl C. diff Tox B Gene Crossmatch Quality Measures Quality Measures none Assessment & Plan Assessment Current Active Medications: Generic Name Dose Route Start Last Admin Trade Name Freq PRN Reason Stop Dose Admin Acetaminophen 650 mg 10/10/24 08:31 Acetaminophen 325 Mg Tablet PO 11/08/24 06:26 Q6H PRN Fever >100 or pain 1-5 Hydrocodone Bitart/Acetaminophen 1 tab 10/10/24 08:31 10/11/24 08:22 Hydrocodone/Apap 5/325 Tablet PO 10/14/24 06:26 1 tab Q4HR PRN Administration Pain Scale 6-10 (Moderate Hydromorphone HCl 0.5 mg 10/10/24 08:31 10/12/24 13:03 Hydromorphone Inj 2 Mg/Ml Vial IVP 10/15/24 08:29 0.5 mg Q4HR PRN Administration BREAKTHROUGH PAIN Metronidazole 500 mg in 100 mls @ 200 mls/hr 10/09/24 09:00 10/12/24 13:02 Flagyl 500 Mg Iv IV 10/16/24 08:59 200 mls/hr Q8HR FAHAD Administration Ciprofloxacin/Dextrose 400 mg in 200 mls @ 200 mls/hr 10/09/24 09:00 10/12/24 08:39 Cipro Ivpb IV 10/16/24 08:59 200 mls/hr Q12HR FAHAD Administration Lactated Ringer's 1,000 mls @ 75 mls/hr 10/10/24 10:54 10/12/24 13:03 Lactated Ringers IV 11/09/24 10:53 75 mls/hr .[id number] FAHAD Administration Ondansetron HCl 4 mg 10/09/24 06:27 10/10/24 09:20 Ondansetron Inj 2 Mg/Ml Inj 2 Ml IV 11/08/24 06:26 4 mg Q6H PRN Administration NAUSEA OR VOMITING Protocol Pantoprazole Sodium 40 mg 10/09/24 09:00 10/12/24 08:39 Pantoprazole 40 Mg Tablet PO 11/08/24 08:59 40 mg QDAY FAHAD Administration Sucralfate 1 gm 10/09/24 09:00 10/12/24 08:39 Sucralfate 1 Gm Tablet PO 11/08/24 08:59 1 gm BID FAHAD Administration Plan Ms. Mendoza is a 43 y/o female with PMHx of hypertension, peptic ulcer disease, Hx of GI bleed, chronic anemia and chronic back pain who is currently admitted for sepsis secondary to enterocolitis, GI losses and syncope workup. #Sepsis secondary to #Acute enterocolitis -Pt presented with vomiting, diarrhea, diffuse abdominal pain and fever -sepsis screening SIRS 3/4 met: tachycardia, leukocytosis (WBC 24) and fever -Pt had sepsis on admission causing end organ demage of JAMIE with Cr 2.6 -CT abdomen pelvis shows imaging signs of acute-colitis -Lactate 1.6, procalcitonin 83.1 -Hypotension on admission likely related to GI losses -EGD- gastritis, and non bleeding ulcer Plan: -Maintenance LR fluids 75 cc an hour -Pain meds ordered prn -Zofran prn -Cipro 500 mg every 12 IV and Flagyl 500 mg every 8 hours IV hours 10/09- -Pending colonoscopy #UTI -Pt denies urinary symptoms of dysuria and urgency -urinanalysis positive for leukocyte esterase, pyuria, hematuria and bacteriuria -Urine culture grew E. coli Plan: -Patient is on antibiotics with ciprofloxacin - 10/09- #Syncope - improved #Hypotension secondary to - improved #GI losses -This is likely related to GI losses, hypovolemia or orthostatic hypotension Plan: -Activity as tolerated -Full liquid diet, advance as tolerated #Microcytic chronic anemia #Symptomatic acute anemia -hemoglobin 7.2, hematocrit 24.5, MCV 76, MCH 22.4 -Iron panel: Iron 38, TIBC 410, iron saturation 9%, unsaturated iron binding 372 -Patient takes ferrous sulfate at home Plan: -Peripheral blood smear -Avoid NSAIDs, use SCDs for DVT prophylaxis -Will transfused Hgb <7 -Pt needs further work up for IBD and microscopic colitis -Calprotectin is ordered -Consulted GI, appreciate recommendations #Acute kidney injury- resolved #Metabolic acidosis, secondary to GI losses Likely prerenal Related to hypovolemia and GI losses (Nausea and diarrhea) on admission Creatinine 2.6, BUN 40 HCO3-: 19.5 Plan: -Maintenance LR 75 cc/hour #Hx of Peptic ulcer disease #Iron deficiency Anemia -Pt has history of PUD and anemia, and takes ferrous sulfate daily which could be contributing to black stool. Plan: -FOBT -Continue with Protonix 40 mg IV -Continue with Carafate 1g every 12 hours #Hx of HTN -Holding blood pressure medicines in setting of hypotension on admission -Will continue to monitor BP #Hx of chronic back pain -Resume home [place] #Health Maintenance Disposition: [facility], pending colonoscopy DVT prophylaxis: SCDs GI prophylaxis: Protonix Diet: Cardiac CODE STATUS: Full Assessment and plan discussed with my senior resident Dr. You & attending physician Dr. Aris Barajas (PGY-1)- Internal medicine resident Attending Provider Attestation/Addendum I have discussed and was present for the essential components of the history, physical examination, diagnosis, and treatment plan with the resident. I agree with the patient's care as documented by the resident and amended herein by me. Boby Hurst DO. Although this document has been carefully reviewed, there may still be some phonetic and other typographical errors. These errors are purely grammatical due to imperfections in the software program and should not be construed in any way to compromise the substance of the patient's medical care during this visit.
--- NOTE | 2024-10-12 14:42 | PC.SS ---
SS follow up note; Pending Colonoscopy.
--- NOTE | 2024-10-12 19:00 | PC.NURSE ---
to endo per mary with iv fluid clamped and sent with pt. Accompanied by endo staff.
--- NOTE | 2024-10-12 19:40 | SUR.PHASEI ---
1939 patient arrived to recovery, report received from Marysol JENKINS
--- NOTE | 2024-10-12 20:14 | SUR.PHASEI ---
2008 Report given to Johanna Aggarwal RN, patient meets discharge criteria from recovery, awake and alert, sitting up in [facility] drinking water; tolerated well, denies nausea, vital signs stable, denies pain. 2014 Patient transported via rney back to room 357 without incident, patient able to ambulate from the gurney to the restroom, voided and then SWITCH FOREMAN arrived and assisted patient into bed when this report writer left patient room.
[2024-10-12] MEDS: HYDROcodone/APAP 5/325 TABLET 1 TAB PO (23:14)
[2024-10-13] VITALS: BP 156/83; PULSE 55; PULSE 83; RESP 16; TEMP 36.5; O2SAT 93
[2024-10-13] MEDS: HYDROmorphone INJ 2 MG/ML VIAL 0.5 MG IVP ×3 (01:38→10:10)
[2024-10-13 04:00] VITALS: BP 147/94; PULSE 67; RESP 16; TEMP 36.6; O2SAT 97
[2024-10-13 05:00] VITALS: PULSE 56
[2024-10-13] MEDS: metroNIDAZOLE/NS 500 MG IVPB 500 MG/100 ML BAG 200 MG IV (05:41)
[2024-10-13] MEDS: RINGERS LACTATED 1000 ML 1,000 ML 75 ML IV (05:49)
[2024-10-13 05:57] LABS: Basophils # (Auto) 0.1 Thou/mm3 (0.0-0.2); Basophils % (Auto) 1 % (0-2.5); Eosinophils # (Auto) 0.1 Thou/mm3 (0.0-0.5); Eosinophils % (Auto) 2 % (0-10); Hematocrit 27.8 % (36.0-46.0); Immature Granulocytes % (Auto) 1 % (0-0); Immature Granulocytes Auto 0.07 Thou/mm3 (0.00-0.00); Lymphocytes # (Auto) 1.6 Thou/mm3 (1.0-4.8); Lymphocytes % (Auto) 33 % (10-50); Mean Corpuscular HGB Conc 31.3 g/dl (31.0-37.0); Mean Corpuscular Hemoglobin 23.5 pg (25.0-35.0); Mean Corpuscular Volume 75 fL (80-100); Monocytes # (Auto) 0.5 Thou/mm3 (0.0-0.8); Monocytes % (Auto) 10 % (0-12); Neutrophils # (Auto) 2.6 Thou/mm3 (1.8-7.7); Neutrophils % (Auto) 54 % (37-80); Nucleated Red Blood Cell % 0 /100 WBC (0); Platelet Count 295 Thou/mm3 (140-440); RDW Standard Deviation 49.9 fL (36.4-46.3); Red Blood Count 3.71 Miln/mm3 (4.00-5.20); White Blood Count 4.9 Thou/mm3 (3.6-11.0)
[2024-10-13 06:10] LABS: Hemoglobin 8.7 g/dL (12.0-16.0)
[2024-10-13 06:35] LABS: Alanine Aminotransferase 9 U/L (10-49); Albumin, Serum 3.4 gm/dL (3.5-5.0); Albumin/Globulin Ratio 1.3 (1.2-2.2); Alkaline Phosphatase 83 U/L (46-116); Anion Gap 11 (7-16); Aspartate Amino Transferase 14 U/L (0-34); BUN/Creatinine Ratio 10 Ratio (12-20); Bilirubin,Total 0.2 mg/dL (0.3-1.2); Blood Urea Nitrogen < 5 mg/dL (9-23); Calcium 8.4 mg/dL (8.3-10.6); Calcium (Corrected) 8.9 mg/dL (8.5-10.1); Carbon Dioxide 25.3 mMol/L (20.0-31.0); Chloride 107 mMol/L (98-107); Creatinine (Component) 0.5 mg/dL (0.6-1.3); Estimated Creatinine Clearance 105.2 mL/min (>60); Globulin 2.6 gm/dL (2.3-3.5); Glucose 76 mg/dL (74-106); Magnesium 1.6 mg/dL (1.6-2.6); Osmolality,Calculated 281 (275-295); Phosphorous 4.1 mg/dL (2.4-5.1); Potassium 3.4 mMol/L (3.4-5.1); Sodium 143 mMol/L (136-145); eGFR > 60 See Note
--- NOTE | 2024-10-13 07:15 | PC.NURSE ---
stool specimen sent to lab for Fecal globin immunochem.
[2024-10-13 08:00] VITALS: BP 147/76; PULSE 62; PULSE 64; RESP 16; TEMP 36.9; O2SAT 93
[2024-10-13] MEDS: CIPROFLOXACIN/D5w 400 MG IVPB 400 MG/200 ML BAG 200 MG IV (09:50)
[2024-10-13] MEDS: SUCRALFATE 1 GM TABLET PO (09:50)
[2024-10-13] MEDS: PANTOPRAZOLE 40 MG TABLET PO (09:50)
[2024-10-13] MEDS: POTASSIUM CHLORIDE 10% 20 MEQ/15 ML UDC 40 MEQ GT (09:50)
[2024-10-13] MEDS: Magnesium Sulfate 4 GM Ivpb 4 GM/50 ML BAG IV (09:50)
--- NOTE | 2024-10-13 11:36 | ESDS_ITS ---
<Statement entered by Lencho Hill MD - 10/14/24 07:37> Patient was seen and examined by me personally. I agree with the discharge plan as discussed with the compensation intern physician, and my attending, Dr. Hurst. Lencho Hill MD, PGY-3 Planned Discharge Date 10/13/24 DS: Providers Provider Date of admission: 10/09/24 06:27 Primary care physician: SARAH Hyman([facility]) Admitting Provider: Ibeth Lucero MD Attending Provider on Admission: José Miguel Hurst DO Consults: 10/10/24 10:51 Consult to Gastroenterology Routine Comment: Consulting Provider: Ama Walters 10/13/24 09:46 Referral Registered Dietitian Routine Comment: Attending Provider on DC: Elise Barajas MD Discharging Provider: Elise Barajas MD DS: Diagnosis Problem List Completed Was Problem List Reviewed/Reconciled?: Yes Hospital Course Hospital Course Hospital course: Patient was a 43-year-old female with HTN, history of PUD, history of GI bleed, chronic anemia, history of MDR UTI, chronic hepatitis B and chronic back pain on [place] who presented with syncope secondary to GI losses (vomiting, diarrhea) and dysuria with concern for GI bleed. CT A/P was concerning for enterocolitis. She met 2/4 SIRS criteria and was noted to be hypotensive. She was admitted for sepsis secondary to acute enterocolitis & UTI; syncope & JAMIE secondary to hypovolemia from GI losses; and concern for GI bleed. Patient was started on IV fluids and IV antibiotics (Cipro, Flagyl) for enterocolitis/UTI. She underwent EGD (gastritis, nonbleeding ulcer) and colonoscopy (hemorrhoids, friability with contact bleeding in sigmoid colon/descending colon; consistent with ischemic colitis). Iron panel consistent with iron deficiency anemia, was started on ferrous sulfate daily, however did require 1 PRBC to be transfused. Hemoglobin was stable after. Urine culture grew E. coli sensitive to ciprofloxacin. On day of discharge, patient was stable for discharge and advised to follow-up with PCP & cardiology outpatient. #Sepsis, resolved #UTI #Ischemic colitis #Syncope, resolved #Hypotension, resolved #GI losses (vomiting, diarrhea), improved #Symptomatic acute anemia #Iron deficiency anemia #JAMIE, resolved #Anion gap metabolic acidosis, resolved #HTN #History of PUD #Chronic back pain #Chronic hepatitis B Discharge plan Complete antibiotics as directed Follow-up pending labs: ANCA's, stool calprotectin, Giardia Follow-up with PCP Follow-up with cardiology outpatient for atherosclerotic disease workup as cause of ischemic colitis Continue low fiber diet Assessment and plan discussed with my senior resident Dr. Hill and attending physician Dr. Sergio Barajas (PGY-1)- Internal medicine resident Status at Discharge Cognitive/behavioral status at discharge: AAOx3 Time Spent with Patient Time attestation: Total time spent providing and/or coordinating discharge services: Time spent: Greater than 30 minutes Exam Vital Signs Temp Pulse Resp BP Pulse Ox O2 Del Method O2 Flow Rate 98.4 F 64 16 147/76 H 93 L Room Air 3 10/13/24 08:00 10/13/24 08:00 10/13/24 08:00 10/13/24 08:00 10/13/24 08:00 10/13/24 08:00 10/12/24 19:33 Narrative Exam GENERAL: A&Ox3 . Awake, pleasant to speak with NEURO: no focal neurological deficits HEENT: Atraumatic, Normocephalic. mucous membranes moist. Eyes open, symmetrical, & clear HEART: Normal Heart Sounds LUNGS: Clear to auscultation with no wheezing or crackles. ABDOMEN: soft, non-distended, non-tender, bowel sounds heard, no guarding or rebound tenderness SKIN: No Rash or ecchymoses EXTREMITIES: No edema, tenderness, able to move all 4 extremities, pedal pulses palpated Discharge Plan Plan Patient Disposition: HOME (Self Care) Care Plan Goals: -Continue medications as prescribed -Take both antibiotics metronidazole and levofloxacin for 2 days -Follow up outpatient with primary care physician to discuss hospital admission and alternative pain management medications -Follow up with menhaden vessel pilot Dr. Ludy Walden for work up of atherosclerotic disease in the setting of ischemic colitis -Continue low fiber diet -Continuar con los medicamentos seg?n lo prescrito -Ander ambos antibi?ticos metronidazol y levofloxacino wanda 2 d?as -Realizar un seguimiento ambulatorio con el m?dico de atenci?n primaria para analizar la hospitalizaci?n y los medicamentos alternativos para el tratamiento del dolor -Realizar un seguimiento con el cardi?logo Dr. Ludy Walden para evaluar la enfermedad ateroscler?rafael en el contexto de la colitis isqu?aleah -Continuar con lucina dieta baja en fibra Prescriptions/Referrals Prescriptions/Med Rec: New amlodipine 10 mg tablet 10 mg PO QDAY Qty: 60 0RF metronidazole 500 mg tablet 500 mg PO TID 2 Days Qty: 6 0RF levofloxacin 500 mg tablet 500 mg PO QDAY 2 Days Qty: 2 0RF ferrous sulfate 325 mg (65 mg iron) tablet 325 mg PO QDAY Qty: 60 0RF Continued lisinopril 20 mg Tablet 20 mg PO QDAY gabapentin 100 mg Capsule 200 mg PO HS pantoprazole 40 mg tablet,delayed release (DR/EC) 40 mg PO BID 90 Days Qty: 180 2RF sucralfate 1 gram tablet 1 g PO BID 90 Days Qty: 180 2RF Discontinued amlodipine 5 mg Tablet 10 mg PO QPM hydrocodone-acetaminophen 10-325 mg Tablet 1 - 2 tab PO Q4H PRN (Reason: Pain) ferrous sulfate [FeroSul] 325 mg (65 mg iron) tablet 325 mg PO BID Patient Comments: TAKE ONE TABLET BY MOUTH TWICE DAILY losartan [Cozaar] 100 mg tablet 100 mg PO .COMPLEX Rx Instructions: 100 mg orally QD AT 1200; Referrals: Alicia Tena FNP ([facility]) [Primary Care Provider] - Ama Walters MD [Physician] - Ludy Walden MD [Physician] - Patient/Caregiver Discharge Instructions Discharge Activity: activity as tolerated Education Materials: Low-Fiber Diet, Ischemic Colitis Print Language: Belarusian Stand Alone Forms: [facility] Award Info., Patient Portal Info Letter Discharge Order Discharge Orders: Discharge (Routine); Ordered 10/13/24 Ordered By: Elise Barajas Quality Discharge Quality Measures VTE prophylaxis (SCDs) Attestestation Attestation I have discussed and was present for the essential components of the discharge history, physical examination, diagnosis, and discharge treatment plan with the resident. I agree with the patient's discharge care as documented by the resident and amended herein by me. Boby Tingle, DO. The patient understood all discharge instructions, all questions were answered satisfactorily. The patient was instructed to return to the Emergency Department is symptoms worsened or persisted. Patient was stable, afebrile, tolerating p.o. intake and ambulatory at time of discharge. Although this document has been carefully reviewed, there may still be some phonetic and other typographical errors. These errors are purely grammatical due to imperfections in the software program and should not be construed in any way to compromise the substance of the patient's medical care during this visit.
[2024-10-13 12:00] VITALS: BP 148/89; PULSE 62; PULSE 64; RESP 16; TEMP 36.3; O2SAT 95
[2024-10-17 06:51] LABS: Giardia Result NOT DETECTED
[2024-10-17 06:56] LABS: Calprotectin, Stool* 1070 mcg/g
[2024-10-19 06:39] LABS: ANCA Screen NEGATIVE (NEGATIVE); Myeloperoxidase Ab <1.0 AI (<1.0); Proteinase-3 Ab <1.0 AI (<1.0)
== END 2024-10-13 14:38 | disposition home or self-care (01) | DRG 720 ==
LOC: SERX 10-09 00:54 → SERHOLD 10-09 07:18 → S3NX 10-09 09:18
PROVIDERS: Specialist; Student in an Organized Health Care Education/Training Program; Admitting Provider Student in an Organized Health Care Education/Training Program; Emergency Provider Emergency Medicine; PCP Nurse Practitioner Primary Care; Visit Provider Internal Medicine
PROC: (CPT 43239; principal; 2024-10-11 19:00)
PROC: 0DJD8ZZ Inspection of Lower Intestinal Tract, Via Natural or Artificial Opening Endoscopic (ICD-10-PCS; CPT 45378; principal; 2024-10-12 17:15)
DX: A41.51 Sepsis due to Escherichia coli [E. coli] (principal); M54.9 Dorsalgia, unspecified; G89.29 Other chronic pain; I10 Essential (primary) hypertension; D50.9 Iron deficiency anemia, unspecified; B18.1 Chronic viral hepatitis B without delta-agent; K55.9 Vascular disorder of intestine, unspecified; E86.1 Hypovolemia; I95.1 Orthostatic hypotension; K25.4 Chronic or unspecified gastric ulcer with hemorrhage; N39.0 Urinary tract infection, site not specified; K29.71 Gastritis, unspecified, with bleeding; N20.0 Calculus of kidney; K64.8 Other hemorrhoids; N17.9 Acute kidney failure, unspecified; E86.0 Dehydration; E87.20 Acidosis, unspecified; Z87.11 Personal history of peptic ulcer disease; Z79.891 Long term (current) use of opiate analgesic; Z79.899 Other long term (current) drug therapy; Z88.8 Allergy status to other drugs, medicaments and biological substances; Z87.440 Personal history of urinary (tract) infections
CPT/HCPCS: 36415; 71045; 74176; 80053; 80061; 81001; 81025; 82274; 83036; 83540; 83550; 83605; 83615; 83690; 83735; 83880; 83993; 84100; 84145; 84439; 84443; 84484; 85014; 85018; 85025; 85046; 85610; 85652; 85730; 86021; 86036; 86140; 86850; 86900; 86901; 86923; 87015; 87040; 87045; 87046; 87077; 87086; 87186; 87205; 87329; 87400; 87493; 87811; 87899; 92610; 93005; 93225; 96365; 96367; 96375; 99285; A4217; A4649; J0696; J0744; J1200; J2175; J2250; J2405; J2543; J3010; J3475; J3490; J7030; J7050; J7120; P9016; A9270; G0328; J1836